=== PATIENT | male | born 1980 | race Caucasian/White ===

== ENCOUNTER 2017-02-05 05:41 | Inpatient (IN) | payer BC, MEDICAID ==
--- NOTE | 2017-02-05 07:26 | C.PDOC ---
History Of Present Illness PATIENT WAS WAITING IN ED FOR 1 HOUR PRIOR TO MY EVALUATION. 37 yo male w/PMHx of alcohol abuse, hx of sz ds, come in accompanied by significant other for evaluation of dizziness, syncopal episode this AM. As per pt, " woke up this AM, got up, felt weak and fell down, syncopized". AT present time, pt admits, feeling dizzy. Strong alcohol odor noted. Pt admits, drinking last night. As per family, pt was seen by PMD 3 days ago and diagnosed with bronchitis. Pt admits, cold sx for past week associated with nasal congestion, productive cough with clear sputum. Pt received Rx for antibiotic " did not start yet". Otherwise, pt denies head injury, worse headache of life, visual changes, focal deficits, neck pain, CP, SOB, dyspnea, diaphoresis, palpitation, wheezing, abd. pain, V/D, hematemesis, melena, back pain, UTI sx, incontinence, denies deformity, weakness to B/L UEs and LEs. A hellen time of evaluation, pt is AAO#3, not in any apparent distress. Time Seen by Provider: 02/05/17 07:22 Chief Complaint (Nursing): Syncope History Per: Patient, Family Past Medical History Reviewed: Historical Data, Nursing Documentation, Vital Signs Vital Signs: Last Vital Signs Temp 97.9 F 02/09/17 13:00 Pulse 77 02/09/17 17:00 Resp 23 02/09/17 17:00 BP 95/68 L 02/09/17 16:59 Pulse Ox 95 02/09/17 18:14 - Medical History PMH: HTN, Pancreatitis Family History: States: Unknown Family Hx - Social History Hx Alcohol Use: Yes Hx Substance Use: No - Immunization History Hx Tetanus Toxoid Vaccination: No Hx Influenza Vaccination: No Hx Pneumococcal Vaccination: No Review Of Systems Except As Marked, All Systems Reviewed And Found Negative. Constitutional: Negative for: Fever, Chills Eyes: Negative for: Vision Change ENT: Negative for: Ear Discharge, Nose Discharge, Mouth Swelling, Throat Swelling Cardiovascular: Negative for: Chest Pain, Palpitations, Edema, Light Headedness Respiratory: Positive for: Cough, Sputum. Negative for: Shortness of Breath, Pleuritic Pain, Wheezing Gastrointestinal: Negative for: Nausea, Vomiting, Abdominal Pain Genitourinary: Negative for: Incontinence Musculoskeletal: Negative for: Neck Pain, Back Pain Skin: Negative for: Bruising Neurological: Positive for: Altered Mental Status, Dizziness. Negative for: Weakness, Numbness, Headache Physical Exam - Physical Exam Appears: Well, Non-toxic, No Acute Distress Skin: Normal Color, Warm, Dry, No Rash, No Ecchymosis Head: Atraumatic, Normacephalic Eye(s): bilateral: PERRL Nose: No Flaring, Discharge (B/L nasal congestion with scant clear rhinorrhea) Oral Mucosa: Moist, No Drooling, Other ((+) strong alcohol odor) Tongue: Normal Appearing Lips: Normal Appearing Throat: No Erythema, No Exudate, No Drooling Neck: Trachea Midline, No Midline Cervical Tenderness, No Paracervical Tenderness, No Step Off Deformity, Supple Cardiovascular: Rhythm Regular, No Murmur, No JVD Respiratory: No Decreased Breath Sounds, No Accessory Muscle Use, No Rhonchi, No Wheezing Gastrointestinal/Abdominal: Soft, No Tenderness, No Distention, No Guarding Back: No CVA Tenderness, No Vertebral Tenderness Extremity: Normal ROM (B/L UEs adn LEs), No Tenderness, No Deformity, No Swelling Neurological/Psych: Oriented x3, Normal Speech, Normal Cognition, Normal Motor, Normal Sensation, Normal Reflexes ED Course And Treatment - Laboratory Results Result Diagrams: 02/09/17 06:18 02/09/17 06:18 ECG: Interpreted By Me, Viewed By Me (AND ED ATTENDING) Interpretation Of ECG: SR@87/min,LAD, LAFB, T wave inversion in V2-V4, no acute ST-T changes,. NO old study available to compare. O2 Sat by Pulse Oximetry: 95 Pulse Ox Interpretation: Normal - Radiology CXR: Interpreted by Me, Viewed By Me CXR Interpretation: Yes: No Acute Disease Progress Note: On re-evaluation, pt remained stable. Pt was sleeping comfortable during the ED observation, not in any apparent distress. Afebrile, hemodynamicaly stable. Non-toxic. PulsEOx 95% RA. neck: Supple, (-) JVD, (-) carotid bruits. Lungs: CTA B/L, BS equal B/L. Abd: benign. Neuorlogicaly intact. Blood work review and appears similar to previous visits. cable worker helper evaluation was called for possible detox admission. After plastics factory worker evaluated pt, admission to Dr.Ozden fields arranged. Disposition - Disposition Disposition: HOSPITALIZED Disposition Time: 10:01 Condition: STABLE - Clinical Impression Clinical Impression: Alcohol dependence
[2017-02-05] MEDS ORDERED: Sodium Chloride 0.9% 1,000 ML IV ONE (07:37)
[2017-02-05] MEDS ORDERED: Sodium Chloride 0.9% 1,000 ML ONE (07:41)
[2017-02-05 08:09] LABS: BASO # 0.1 K/uL (0.0-0.2); BASO % 1.7 % (0.0-2.0); EOS # 0.1 K/uL (0.0-0.7); EOS % 3.5 % (0.0-4.0); HEMATOCRIT 41.1 % (35.0-51.0); LYMPH # 1.5 K/uL (1.0-4.3); LYMPH % 44.9 % (20.0-40.0); MEAN CORPUSCULAR HEMOGLOBIN 34.4 pg (27.0-31.0); MEAN CORPUSCULAR HGB CONC 34.3 g/dL (33.0-37.0); MEAN PLATELET VOLUME 9.3 fL (7.2-11.7); MONO # 0.4 K/uL (0.0-0.8); MONO % 13.3 % (0.0-10.0); NRBC % 0.5 % (0.0-2.0); RED CELL DISTRIBUTION WIDTH 16.2 % (11.5-14.5); WHITE BLOOD COUNT 3.3 K/uL (4.8-10.8)
[2017-02-05 08:21] LABS: MEAN CELL VOLUME 100.4 fL (80.0-94.0)
[2017-02-05 08:24] LABS: RBC URINE 21 /hpf (0-3); URINE BILIRUBIN NEGATIVE (NEGATIVE); URINE BLOOD 1+ (NEGATIVE); URINE CALCIUM OXALATE CRYSTALS FEW /hpf (<OCC); URINE COLOR Amber (YELLOW); URINE GLUCOSE (UA) NORMAL (Normal); URINE KETONE TRACE mg/dL (NEGATIVE); URINE LEUKOCYTE ESTERASE NEG Leu/uL (Negative); URINE PROTEIN 3+ mg/dL (NEGATIVE); WBC URINE 3 /hpf (0-5)
[2017-02-05 08:39] LABS: ALB/GLOB RATIO 1.3 (1.0-2.1); ALCOHOL SERUM 243 mg/dl (0-10); ALKALINE PHOSPHATASE 186 U/L (38-126); ALT/SGPT 110 U/L (21-72); AST/SGOT 327 U/L (17-59); BLOOD UREA NITROGEN 8 mg/dL (9-20); CALCIUM 8.5 mg/dl (8.6-10.4); CARBON DIOXIDE 24 mmol/L (22-30); CHLORIDE 106 mmol/L (98-107); GFR AFRICAN-AMERICAN > 60; GLUCOSE,RANDOM 135 mg/dL (75-110); POTASSIUM 3.7 mmol/L (3.6-5.2); SODIUM 144 mmol/L (132-148); TOTAL PROTEIN 7.5 g/dL (6.3-8.3)
[2017-02-05] MEDS: Multiple Vitamins Tab PO SCH (13:53)
[2017-02-05] MEDS: Pantoprazole 20 mg EC Tab PO SCH (13:54)
--- NOTE | 2017-02-05 14:43 | PCM.PSYCH ---
Initial Psychiatric Evaluation - Initial Psychiatric Evaluation Type of Admission: Voluntary Legal Status: Capacity Chief Complaint (in patient's own words): "I want to stop drinking" History of Present Illness and Precipitating Events: This is a 37 year old male who lives with his girlfriend in [place]. He is single with one 9 year old child. 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 Patient reports to alcohol use, average of 0.5 gallons of liquor daily for 1 year. He reports he has been drinking "since his 20s, got clean, and relapsed a year ago." He reports 1 detox treatment previously, denies attending rehab or AA. He denies any previous naltrexone management. He reports history of seizures and delirium tremens 2 years ago. He denies any other drug use. Patient hopes to attend outpatient program after detox. Past medical history: sinus infection, bronchitis, HTN Past psychiatric history: anger management (court mandated) Family psychiatric history: denies Family substance use: denies Current Medications: Active Medications Generic Name Dose Route Start Last Admin Trade Name Freq PRN Reason Stop Dose Admin Clonidine HCl 0.1 mg 02/05/17 12:35 02/05/17 13:52 Catapres PO 0.1 mg Q4H PRN Administration Symptoms of alcohol withdrawl Folic Acid 1 mg 02/05/17 12:45 02/05/17 13:53 Folic Acid PO 1 mg DAILY RA Administration Gabapentin 300 mg 02/05/17 18:00 Neurontin PO BID RA Hydroxyzine HCl 25 mg 02/05/17 12:36 02/05/17 13:52 Atarax PO 25 mg Q4H PRN Administration Anxiety Ibuprofen 400 mg 02/05/17 12:36 Motrin Tab PO Q6H PRN Pain, moderate (4-7) Lorazepam 1 mg 02/05/17 12:35 Ativan PO Q4H PRN symptoms of alcohol withdrawl Lorazepam 2 mg 02/05/17 12:45 02/05/17 13:51 Ativan PO 02/10/17 12:44 2 mg Q6H RA Administration Taper Multivitamins 1 tab 02/05/17 12:45 02/05/17 13:53 Hexavitamin PO 1 tab DAILY RA Administration Pantoprazole Sodium 20 mg 02/05/17 12:45 02/05/17 13:54 Protonix Ec Tab PO 20 mg DAILY RA Administration Pneumococcal Polyvalent Vaccine 0.5 ml 02/08/17 14:23 Pneumovax 23 Vaccine IM 02/08/17 14:24 .ONCE ONE Thiamine HCl 100 mg 02/05/17 12:45 02/05/17 13:49 Vitamin B1 Tab PO 100 mg DAILY RA Administration Trazodone HCl 50 mg 02/05/17 12:35 Desyrel PO HS PRN Insomnia Past Psychiatric History - Past Psychiatric History Pertinent Medical Hx (Current Medical&Sleep Prob, Allergies): Allergies Allergy/AdvReac Type Severity Reaction Status Date / Time No Known Allergies Allergy Verified 02/05/17 05:53 No Known Home Med 02/05/17 Review of Systems - Review of Systems All systems: reviewed and no additional remarkable complaints except - EENT Nose/Mouth/Throat: Sinus Pain, Sinus Pressure, Facial Pain - Cardiovascular Cardiovascular: absent: Chest Pain - Respiratory Respiratory: absent: Dyspnea - Gastrointestinal Gastrointestinal: Abdominal Pain, Nausea, Vomiting - Neurological Neurological: Headaches, Tremor. absent: Convulsions - Psychiatric Psychiatric: Anxiety, Depression, Hopelessness, Irritability. absent: Auditory Hallucinations, Homicidal Ideation, Suicidal Ideation, Visual Hallucinations Mental Status Examination - Personal Presentation Personal Presentation: Looks stated age - Affect Affect: Constricted, Depressed - Motor Activity Motor Activity: Calm - Reliability in Providing Information Reliability in Providing Information: Poor, due to altered mood - Speech Speech: Organized - Mood Mood: Depressed, Anxious - Formal Thought Process Formal Thought Process: No Impairment - Obsessions/Compulsions Obsessions: No Compulsions: No - Cognitive Functions Orientation: Person, Place, Situation, Time Sensorium: Alert Attention/Concentration: Attentive Abstract Thinking: [place] Estimate of Intelligence: Average Judgement: Intact, as evidence by: Insight regarding need for hospitalization Memory: Recent intact, as evidence by: Ability to recall events of the day, Remote intact, as evidenced by: Abilit to recall sig. life events - Risk Risk: Diminished functioning DSM 5 DX - DSM 5 DSM 5 Diagnosis: Alcohol use disorder, severe Alcohol withdrawal - Recommended/Plan of Treatment Treatment Recommendations and Plan of Treatment: Ativan detox Gabapentin for augmentation As needed medications Attend groups and activities Supportive therapy and psychoeducation CT for abstinence CBT for relapse prevention Encourage MAT Refer to rehab or IOP, and self-help groups. Projected ELOS: 4-5 days Prognosis: Good with treatment Discharge Plan and Discharge Criteria: No withdrawal symptoms Refer to rehab
--- NOTE | 2017-02-05 14:47 | PCM.BM ---
Treatment Plan Problems - Problems identified on initial assessmt possible withdrawal from alcohol Date Initiated: 02/05/17 Time Initiated: 14:45 Assessment reference: NA Status: Active anxiety Date Initiated: 02/05/17 Time Initiated: 14:46 Assessment reference: NA Status: Active - Milieu Protocol Maintain good personal hygiene: daily Encourage regular showers, daily Remind patient to perform daily oral care, daily Assist patient to perform ADL's Conduct patient checks and document Observation sheet: Q15 minutes Maintain personal safety: every shift Educate patient to report safety concerns to staff, every shift Monitor environment for contraband/sharps Medication safety: Monitor for expected outcome, potential side effects: every shift, Assess barriers to learning: every shift, Assess readiness for medication education: every shift
--- NOTE | 2017-02-05 19:13 | CARD ---
APPROVED REPORT EKG Measurement Heart [id number] ID [id number] <Conclusion> Normal sinus rhythm Left anterior fascicular block Nonspecific ST and T wave abnormality Abnormal ECG
--- NOTE | 2017-02-05 21:15 | CP.PCM.CON ---
<Daina Collier - Last Filed: 02/06/17 01:47> History of Present Illness - History of Present Illness History of Present Illness: Medicine Consult Note HPI: Patient is a 37M with PMH alcoholism and untreated HTN who is here for alcohol detox. Medicine was consulted for uncontrolled HTN. Patient says he sees a doctor outside the hospital but cannot remember his name. He says he saw him yesterday and the doctor prescribed "65 mg of some blood pressure medication " that he cannot remember the name of. Patient says he filled the medication at a pharmacy he cannot recall but did not take it yet because he came here. Patient admits to tremors, occipital headache and ringing in the left ear of 3 days duration. He also admits to cough productive of green sputum, occasional dyspnea, and sore throat for 1 year. Patient says he noticed an pruritic rash on his left foot near the ankle that started yesterday. Of note, patient says that 1 month ago he noticed dark tarry stool and then 2 weeks ago he had a BM with blood in the toilet bowl but did not notice any on the toilet paper when he wiped. Patient has not noticed blood in his stool since then. He denies fever , chills, dizziness, chest pain, palpitations, abdominal pain, n/v/d/c, dysuria , hematuria, calf pain, and LE swelling. 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 Review of Systems - Review of Systems All systems: reviewed and no additional remarkable complaints except (as per HPI ) Past Patient History - Past Medical History & Family History Past Medical History?: Yes - Past Social History Smoking Status: Heavy Smoker > 10 Cigarettes Daily - CARDIAC Hx Cardiac Disorders: No Hx Hypertension: Yes - PULMONARY Hx Tuberculosis: No - NEUROLOGICAL HX Cerebrovascular Accident: No Hx Seizures: Yes (last March 2015) - HEMATOLOGICAL/ONCOLOGICAL Hx Cancer: No Hx Human Immunodeficiency Virus (HIV): No - MUSCULOSKELETAL/RHEUMATOLOGICAL Hx Falls: Yes - GASTROINTESTINAL Hx Pancreatitis: Yes - GENITOURINARY/GYNECOLOGICAL Hx Sexually Transmitted Disorders: No - PSYCHIATRIC Hx Substance Use: No - SURGICAL HISTORY Hx Surgeries: No - ANESTHESIA Hx Anesthesia: No Meds Allergies/Adverse Reactions: Allergies Allergy/AdvReac Type Severity Reaction Status Date / Time No Known Allergies Allergy Verified 02/05/17 05:53 - Medications Medications: Current Medications Clonidine HCl (Catapres) 0.1 mg PO Q4H PRN PRN Reason: Symptoms of alcohol withdrawl Last Admin: 02/05/17 13:52 Dose: 0.1 mg Folic Acid (Folic Acid) 1 mg PO DAILY [facility] Last Admin: 02/05/17 13:53 Dose: 1 mg Gabapentin (Neurontin) 300 mg PO BID [facility] Last Admin: 02/05/17 17:39 Dose: 300 mg Hydralazine HCl (Apresoline) 10 mg PO QID [facility] Last Admin: 02/05/17 17:39 Dose: 10 mg Hydroxyzine HCl (Atarax) 25 mg PO Q4H PRN PRN Reason: Anxiety Last Admin: 02/05/17 13:52 Dose: 25 mg Ibuprofen (Motrin Tab) 400 mg PO Q6H PRN PRN Reason: Pain, moderate (4-7) Lorazepam (Ativan) 1 mg PO Q4H PRN PRN Reason: symptoms of alcohol withdrawl Lorazepam (Ativan) 2 mg PO Q6H [facility] PRN Reason: Taper Stop: 02/10/17 12:44 Last Admin: 02/05/17 18:07 Dose: Not Given Metoprolol Tartrate (Lopressor) 25 mg PO ONCE [facility] Last Admin: 02/05/17 19:00 Dose: 25 mg Metoprolol Tartrate (Lopressor) 25 mg PO DAILY [facility] Multivitamins (Hexavitamin) 1 tab PO DAILY [facility] Last Admin: 02/05/17 13:53 Dose: 1 tab Pantoprazole Sodium (Protonix Ec Tab) 20 mg PO DAILY [facility] Last Admin: 02/05/17 13:54 Dose: 20 mg Pneumococcal Polyvalent Vaccine (Pneumovax 23 Vaccine) 0.5 ml IM .ONCE ONE Stop: 02/08/17 14:24 Thiamine HCl (Vitamin B1 Tab) 100 mg PO DAILY [facility] Last Admin: 02/05/17 13:49 Dose: 100 mg Trazodone HCl (Desyrel) 50 mg PO HS PRN PRN Reason: Insomnia Physical Exam - Constitutional Appears: Non-toxic, No Acute Distress Additional comments: smells of cigarette smoke and appears fatigued - Head Exam Head Exam: ATRAUMATIC, NORMOCEPHALIC - Eye Exam Eye Exam: EOMI, Normal appearance, PERRL - ENT Exam ENT Exam: Mucous Membranes Moist - Neck Exam Neck exam: Positive for: Normal Inspection - Respiratory Exam Respiratory Exam: Clear to Auscultation Bilateral, NORMAL BREATHING PATTERN. absent: Accessory Muscle Use, Rales, Rhonchi, Wheezes, Respiratory Distress - Cardiovascular Exam Cardiovascular Exam: Tachycardia, REGULAR RHYTHM, +S1, +S2 - GI/Abdominal Exam GI & Abdominal Exam: Hyperactive Bowel Sounds, Soft. absent: Distended, Tenderness - Extremities Exam Extremities exam: Positive for: normal inspection. Negative for: calf tenderness, pedal edema - Neurological Exam Neurological exam: Alert, Oriented x3 Additional comments: tremor in hands b/l - Psychiatric Exam Psychiatric exam: Normal Affect, Normal Mood - Skin Skin Exam: Dry, Intact, Normal Color, Warm Results - Vital Signs Recent Vital Signs: Last Vital Signs Temp 99 F 02/05/17 20:52 Pulse 93 H 02/05/17 20:52 Resp 18 02/05/17 20:52 BP 162/121 H 02/05/17 20:52 Pulse Ox 97 02/05/17 20:52 - Labs Result Diagrams: 02/05/17 07:55 02/05/17 07:55 Labs: Laboratory Results - last 24 hr 02/05/17 02/05/17 02/05/17 07:55 07:55 07:55 WBC 3.3 L RBC 4.10 L Hgb 14.1 Hct 41.1 MCV 100.4 H D MCH 34.4 H MCHC 34.3 RDW 16.2 H Plt Count 118 L MPV 9.3 Neut % (Auto) 36.6 L Lymph % (Auto) 44.9 H [place] % (Auto) 13.3 H Eos % (Auto) 3.5 Baso % (Auto) 1.7 Neut # 1.2 L Lymph # 1.5 [place] # 0.4 Eos # 0.1 Baso # 0.1 Differential Comment Sodium 144 Potassium 3.7 Chloride 106 Carbon Dioxide 24 Anion Gap 17 BUN 8 L Creatinine 0.6 L Est GFR ( Amer) > 60 Est GFR (Non-Af Amer) > 60 Random Glucose 135 H Calcium 8.5 L Total Bilirubin 1.0 AST 327 H ALT 110 H Alkaline Phosphatase 186 H Total Creatine Kinase 107 Troponin I 0.0150 Total Protein 7.5 Albumin 4.3 Globulin 3.2 Albumin/Globulin Ratio 1.3 Urine Color Mica Urine Clarity Clear Urine pH 5.0 Ur Specific [place] 1.027 Urine Protein 3+ H Urine Glucose (UA) Normal Urine Ketones Trace Urine Blood 1+ H Urine Nitrate Negative Urine Bilirubin Negative Urine Urobilinogen 2.0 Ur Leukocyte Esterase Neg Urine WBC (Auto) 3 Urine RBC (Auto) 21 H Ur Squamous Epith Cells 2 Calcium Oxalate Crystal Few H Urine Opiates Screen Urine Methadone Screen Ur Barbiturates Screen Ur Phencyclidine Scrn Ur Amphetamines Screen U Benzodiazepines Scrn U Oth Cocaine Metabols U Cannabinoids Screen Alcohol, Quantitative 243 H 02/05/17 07:55 WBC RBC Hgb Hct MCV MCH MCHC RDW Plt Count MPV Neut % (Auto) Lymph % (Auto) [place] % (Auto) Eos % (Auto) Baso % (Auto) Neut # Lymph # [place] # Eos # Baso # Differential Comment Sodium Potassium Chloride Carbon Dioxide Anion Gap BUN Creatinine Est GFR ( Amer) Est GFR (Non-Af Amer) Random Glucose Calcium Total Bilirubin AST ALT Alkaline Phosphatase Total Creatine Kinase Troponin I Total Protein Albumin Globulin Albumin/Globulin Ratio Urine Color Urine Clarity Urine pH Ur Specific [place] Urine Protein Urine Glucose (UA) Urine Ketones Urine Blood Urine Nitrate Urine Bilirubin Urine Urobilinogen Ur Leukocyte Esterase Urine WBC (Auto) Urine RBC (Auto) Ur Squamous Epith Cells Calcium Oxalate Crystal Urine Opiates Screen Negative Urine Methadone Screen Negative Ur Barbiturates Screen Negative Ur Phencyclidine Scrn Negative Ur Amphetamines Screen Negative U Benzodiazepines Scrn Negative U Oth Cocaine Metabols Negative U Cannabinoids Screen Negative Alcohol, Quantitative Assessment & Plan - Assessment and Plan (Free Text) Plan: HTN * Monitor on telemetry * Discontinued hydralazine 10 mg PO QID & Clonadine 0.1 mg PO Q4 PRN * Added Propanolol 20 mg QID * EKG: NSR, left anterior fasicular block, nonspecific ST and T wave abnormality * CXR: NAD * Will admits to telemetry and continue to monitor Alcoholism * Alcohol level: 243 * UDS: negative * Ativan 2 mg PO QID and 1 mg IV Q2H PRN * Continue current management per primary (Dr. Oconnor) Transaminitis * pattern consistent with chronic alcoholism * Hep panel * Hepatic US Recent episode of melena and hematochezia * H&H stable * Discontinued ibuprofen * f/u FOBT Mechanical sleep apnea * ENT consulted (Kiarra) - recs appreciated * CPAP at night <Joey Gómez P - Last Filed: 02/06/17 03:13> Meds - Medications Medications: Current Medications Folic Acid (Folic Acid) 1 mg PO DAILY [facility] Last Admin: 02/05/17 13:53 Dose: 1 mg Gabapentin (Neurontin) 300 mg PO BID [facility] Last Admin: 02/05/17 17:39 Dose: 300 mg Magnesium Sulfate/Dextrose (Magnesium Sulfate 1 Gm/100 Ml D5w) 1 gm in 100 mls @ 300 mls/hr IVPB Q30M NADIA Stop: 02/06/17 03:49 Magnesium Sulfate/Dextrose (Magnesium Sulfate 1 Gm/100 Ml D5w) 1 gm in 100 mls @ 200 mls/hr IVPB ONCE ONE Stop: 02/06/17 03:29 Lorazepam (Ativan) 2 mg PO Q6H NADIA PRN Reason: Taper Stop: 02/10/17 12:44 Last Admin: 02/06/17 01:45 Dose: 2 mg Lorazepam (Ativan) 1 mg PO Q2H PRN PRN Reason: symptoms of alcohol withdrawl Metoprolol Tartrate (Lopressor) 25 mg PO ONCE [facility] Last Admin: 02/05/17 19:00 Dose: 25 mg Multivitamins (Hexavitamin) 1 tab PO DAILY [facility] Last Admin: 02/05/17 13:53 Dose: 1 tab Pantoprazole Sodium (Protonix Ec Tab) 20 mg PO DAILY [facility] Last Admin: 02/05/17 13:54 Dose: 20 mg Pneumococcal Polyvalent Vaccine (Pneumovax 23 Vaccine) 0.5 ml IM .ONCE ONE Stop: 02/08/17 14:24 Propranolol HCl (Inderal) 20 mg PO QID [facility] Thiamine HCl (Vitamin B1 Tab) 100 mg PO DAILY [facility] Last Admin: 02/05/17 13:49 Dose: 100 mg Trazodone HCl (Desyrel) 50 mg PO HS PRN PRN Reason: Insomnia Results - Vital Signs Recent Vital Signs: Last Vital Signs Temp 99.2 F 12/12/17 01:15 Pulse 83 02/06/17 01:15 Resp 18 02/06/17 00:31 BP 180/136 H 02/06/17 00:31 Pulse Ox 97 02/06/17 00:31 - Labs Result Diagrams: 02/06/17 01:53 02/06/17 01:53 Labs: Laboratory Results - last 24 hr 02/05/17 02/05/17 02/05/17 07:55 07:55 07:55 WBC 3.3 L RBC 4.10 L Hgb 14.1 Hct 41.1 MCV 100.4 H D MCH 34.4 H MCHC 34.3 RDW 16.2 H Plt Count 118 L MPV 9.3 Neut % (Auto) 36.6 L Lymph % (Auto) 44.9 H [place] % (Auto) 13.3 H Eos % (Auto) 3.5 Baso % (Auto) 1.7 Neut # 1.2 L Lymph # 1.5 [place] # 0.4 Eos # 0.1 Baso # 0.1 Differential Comment Sodium 144 Potassium 3.7 Chloride 106 Carbon Dioxide 24 Anion Gap 17 BUN 8 L Creatinine 0.6 L Est GFR ( Amer) > 60 Est GFR (Non-Af Amer) > 60 Random Glucose 135 H Calcium 8.5 L Phosphorus Magnesium Total Bilirubin 1.0 AST 327 H ALT 110 H Alkaline Phosphatase 186 H Total Creatine Kinase 107 Troponin I 0.0150 Total Protein 7.5 Albumin 4.3 Globulin 3.2 Albumin/Globulin Ratio 1.3 25-OH Vitamin D Total Urine Color Mica Urine Clarity Clear Urine pH 5.0 Ur Specific [place] 1.027 Urine Protein 3+ H Urine Glucose (UA) Normal Urine Ketones Trace Urine Blood 1+ H Urine Nitrate Negative Urine Bilirubin Negative Urine Urobilinogen 2.0 Ur Leukocyte Esterase Neg Urine WBC (Auto) 3 Urine RBC (Auto) 21 H Ur Squamous Epith Cells 2 Calcium Oxalate Crystal Few H Urine Opiates Screen Urine Methadone Screen Ur Barbiturates Screen Ur Phencyclidine Scrn Ur Amphetamines Screen U Benzodiazepines Scrn U Oth Cocaine Metabols U Cannabinoids Screen Alcohol, Quantitative 243 H Hepatitis A IgM Ab Hep Bs Antigen Hep B Core IgM Ab 02/05/17 02/06/17 02/06/17 07:55 01:53 01:53 WBC RBC Hgb Hct MCV MCH MCHC RDW Plt Count MPV Neut % (Auto) Lymph % (Auto) [place] % (Auto) Eos % (Auto) Baso % (Auto) Neut # Lymph # [place] # Eos # Baso # Differential Comment Sodium 140 Potassium 3.6 Chloride 102 Carbon Dioxide 29 Anion Gap 13 BUN 9 Creatinine 0.6 L Est GFR ( Amer) > 60 Est GFR (Non-Af Amer) > 60 Random Glucose 113 H Calcium 8.6 Phosphorus 3.0 Magnesium 1.1 L Total Bilirubin 1.4 H AST 264 H ALT 107 H Alkaline Phosphatase 145 H D Total Creatine Kinase Troponin I Total Protein 8.2 Albumin 4.2 Globulin 4.0 H Albumin/Globulin Ratio 1.0 25-OH Vitamin D Total Urine Color Urine Clarity Urine pH Ur Specific [place] Urine Protein Urine Glucose (UA) Urine Ketones Urine Blood Urine Nitrate Urine Bilirubin Urine Urobilinogen Ur Leukocyte Esterase Urine WBC (Auto) Urine RBC (Auto) Ur Squamous Epith Cells Calcium Oxalate Crystal Urine Opiates Screen Negative Urine Methadone Screen Negative Ur Barbiturates Screen Negative Ur Phencyclidine Scrn Negative Ur Amphetamines Screen Negative U Benzodiazepines Scrn Negative U Oth Cocaine Metabols Negative U Cannabinoids Screen Negative Alcohol, Quantitative Hepatitis A IgM Ab Negative Hep Bs Antigen Negative Hep B Core IgM Ab Negative 02/06/17 02/06/17 01:53 01:53 WBC 4.1 L RBC 4.09 L Hgb 13.8 Hct 41.1 MCV 100.5 H MCH 33.7 H MCHC 33.6 RDW 16.0 H Plt Count 104 L MPV 9.5 Neut % (Auto) 47.3 L Lymph % (Auto) 38.2 [place] % (Auto) 9.9 Eos % (Auto) 3.2 Baso % (Auto) 1.4 Neut # 1.9 Lymph # 1.6 [place] # 0.4 Eos # 0.1 Baso # 0.1 Differential Comment Sodium Potassium Chloride Carbon Dioxide Anion Gap BUN Creatinine Est GFR ( Amer) Est GFR (Non-Af Amer) Random Glucose Calcium Phosphorus Magnesium Total Bilirubin AST ALT Alkaline Phosphatase Total Creatine Kinase Troponin I Total Protein Albumin Globulin Albumin/Globulin Ratio 25-OH Vitamin D Total 14.7 L Urine Color Urine Clarity Urine pH Ur Specific [place] Urine Protein Urine Glucose (UA) Urine Ketones Urine Blood Urine Nitrate Urine Bilirubin Urine Urobilinogen Ur Leukocyte Esterase Urine WBC (Auto) Urine RBC (Auto) Ur Squamous Epith Cells Calcium Oxalate Crystal Urine Opiates Screen Urine Methadone Screen Ur Barbiturates Screen Ur Phencyclidine Scrn Ur Amphetamines Screen U Benzodiazepines Scrn U Oth Cocaine Metabols U Cannabinoids Screen Alcohol, Quantitative Hepatitis A IgM Ab Hep Bs Antigen Hep B Core IgM Ab Attending/Attestation - Attestation I have personally seen and examined this patient.: Yes I have fully participated in the care of the patient.: Yes I have reviewed all pertinent clinical information: Yes Notes (Text): Patient seen in detox, where he was admitted for alcohol detox, patient drinks about 1/2 gallon of vodka a day, patient had tremors, htn noticed in the detox more on automatic then manual due to visible tremors about 30mmhg difference in diastolic bp. Also noticed inspiratory and expiratory sound from the pharynx, naso pharynx suggesting mechanical sleep apnea. There was also concern relating patient having melanotic stool. Transaminits appearing like alcoholic liver disease. Thrombocytopenia, suggesting possibility increased size of spleen secondary to liver cirhosis. Plan Patient transferred to [facility] for anticipated DT due to large volume alcohol consumption Oral ativan nadia, iv prn Thiamine, mvt, fa Hepatitis w/u, hepatic imaging with usg Replacement of electrolytes CPAP ENT eval for sleep apnea. GI DVT prophylaxis
[2017-02-06 02:01] LABS: BASO # 0.1 K/uL (0.0-0.2); BASO % 1.4 % (0.0-2.0); EOS # 0.1 K/uL (0.0-0.7); EOS % 3.2 % (0.0-4.0); HEMATOCRIT 41.1 % (35.0-51.0); LYMPH # 1.6 K/uL (1.0-4.3); LYMPH % 38.2 % (20.0-40.0); MEAN CELL VOLUME 100.5 fL (80.0-94.0); MEAN CORPUSCULAR HEMOGLOBIN 33.7 pg (27.0-31.0); MEAN CORPUSCULAR HGB CONC 33.6 g/dL (33.0-37.0); MEAN PLATELET VOLUME 9.5 fL (7.2-11.7); MONO # 0.4 K/uL (0.0-0.8); MONO % 9.9 % (0.0-10.0); WHITE BLOOD COUNT 4.1 K/uL (4.8-10.8)
[2017-02-06 02:25] LABS: ALKALINE PHOSPHATASE 145 U/L (38-126); ALT/SGPT 107 U/L (21-72); AST/SGOT 264 U/L (17-59); BILIRUBIN,TOTAL 1.4 mg/dL (0.2-1.3); BLOOD UREA NITROGEN 9 mg/dL (9-20); CALCIUM 8.6 mg/dl (8.6-10.4); CARBON DIOXIDE 29 mmol/L (22-30); CHLORIDE 102 mmol/L (98-107); GFR AFRICAN-AMERICAN > 60; GLUCOSE,RANDOM 113 mg/dL (75-110); MAGNESIUM 1.1 mg/dL (1.6-2.3); POTASSIUM 3.6 mmol/L (3.6-5.2); SODIUM 140 mmol/L (132-148); TOTAL PROTEIN 8.2 g/dL (6.3-8.3)
[2017-02-06] MEDS ORDERED: Magnesium Sulfate 1 gm in D5W 1 GM/100 ML BAG IVPB SCH (03:00)
[2017-02-06] MEDS: Magnesium Sulfate 1 gm in D5W 1 GM/100 ML BAG IVPB SCH ×3 (03:10→05:15)
[2017-02-06 08:07] VITALS: BMI 31.6
--- NOTE | 2017-02-06 09:42 | CP.PCM.PN ---
<Reyna Giraldo - Last Filed: 02/06/17 13:47> Subjective - Date & Time of Evaluation Date of Evaluation: 02/06/17 Time of Evaluation: 09:35 - Subjective Subjective: Progress note for Dr. Molina Patient seen and examined at bedside. Patient states he feels cold and tired, but no other complaints. Patient continues to fall sleep during the Patient denies fever, abdominal pain. Objective - Vital Signs/Intake and Output Vital Signs (last 24 hours): Temp Pulse Resp BP Pulse Ox 98 F 70 19 167/109 H 96 02/06/17 08:00 02/06/17 08:01 02/06/17 08:01 02/06/17 08:01 02/06/17 08:01 Intake and Output: 02/06/17 02/06/17 06:59 18:59 Intake Total 500 Output Total 300 Balance 200 - Medications Medications: Current Medications Folic Acid (Folic Acid) 1 mg PO DAILY [facility] Last Admin: 02/05/17 13:53 Dose: 1 mg Gabapentin (Neurontin) 300 mg PO BID [facility] Last Admin: 02/05/17 17:39 Dose: 300 mg Heparin Sodium (Porcine) (Heparin) 5,000 units SC Q12 [facility] Piperacillin Sod/Tazobactam (Sod 3.375 gm/ Sodium Chloride) 100 mls @ 100 mls/ hr IVPB Q6H RA Lorazepam (Ativan) 2 mg PO Q6H [facility] PRN Reason: Taper Stop: 02/10/17 12:44 Last Admin: 02/06/17 07:00 Dose: 2 mg Lorazepam (Ativan) 1 mg PO Q2H PRN PRN Reason: symptoms of alcohol withdrawl Metoprolol Tartrate (Lopressor) 25 mg PO ONCE [facility] Last Admin: 02/05/17 19:00 Dose: 25 mg Multivitamins (Hexavitamin) 1 tab PO DAILY [facility] Last Admin: 02/05/17 13:53 Dose: 1 tab Pantoprazole Sodium (Protonix Ec Tab) 20 mg PO DAILY [facility] Last Admin: 02/05/17 13:54 Dose: 20 mg Pneumococcal Polyvalent Vaccine (Pneumovax 23 Vaccine) 0.5 ml IM .ONCE ONE Stop: 02/08/17 14:24 Propranolol HCl (Inderal) 20 mg PO QID [facility] Thiamine HCl (Vitamin B1 Tab) 100 mg PO DAILY [facility] Last Admin: 02/05/17 13:49 Dose: 100 mg Trazodone HCl (Desyrel) 50 mg PO HS PRN PRN Reason: Insomnia - Labs Labs: 02/06/17 01:53 02/06/17 01:53 - Constitutional Appears: Non-toxic, No Acute Distress - Head Exam Head Exam: NORMAL INSPECTION - Eye Exam Eye Exam: EOMI, Normal appearance - ENT Exam ENT Exam: Mucous Membranes Moist - Neck Exam Neck Exam: Full ROM. absent: Tenderness - Respiratory Exam Respiratory Exam: Clear to Ausculation Bilateral, NORMAL BREATHING PATTERN. absent: Decreased Breath Sounds, Wheezes, Respiratory Distress - Cardiovascular Exam Cardiovascular Exam: REGULAR RHYTHM, +S1, +S2. absent: Bradycardia, Tachycardia - GI/Abdominal Exam GI & Abdominal Exam: Soft, Normal Bowel Sounds. absent: Distended, Tenderness - Extremities Exam Extremities Exam: Full ROM. absent: Pedal Edema - Back Exam Back Exam: Full ROM - Neurological Exam Neurological Exam: Alert, Awake - Psychiatric Exam Psychiatric exam: Normal Affect, Normal Mood - Skin Skin Exam: Dry, Intact, Warm Assessment and Plan - Assessment and Plan (Free Text) Assessment: HTN * Monitor on telemetry * Discontinued hydralazine 10 mg PO QID & Clonadine 0.1 mg PO Q4 PRN * Added Propanolol 20 mg QID * 02/05 EKbpm NSR left anterior fascicular block,nonspecific ST and T wave abnormality * 02/05 CXR: no active pulmonary disease * 02/05 admitted to telemetry and continue to monitor * 02/06 changed to regular bed Alcohol use * Alcohol level: 243 * UDS: negative * Ativan 2 mg PO Q4H RA and 1 mg IV Q2H PRN * Librium 50 one dose ordered 02/06 * Continue current management per primary (Dr. Oconnor) * encouraged alcohol cessation * re-evaluate tomorrow to change medications if necessary Transaminitis * pattern consistent with chronic alcoholism * 02/05 Hep panel: negative * 02/06 abdominal US: echogenic liver possible parechymal disease or fatty infiltration, no focal hepatic mass identified. main portal vein patent with normal directional flow. no intrahepatic bile duct dilatation. no gallstones, no gallbladder wall thickening or pericholecystic edema. negative sonographic Harper's sign. CBD 3mm. Recent episode of melena and hematochezia * H&H stable * Discontinued ibuprofen * f/u FOBT Mechanical sleep apnea * 02/05 ENT consult: Dr. Plunkett * CPAP at night * 02/[address]: findings are most compatible with chronic left maxillary sinusitis/sinonasal polyp Discussed with Dr. Tracy Giraldo DO PGY1 <Luis Molina H - Last Filed: 02/06/17 14:07> Objective - Vital Signs/Intake and Output Vital Signs (last 24 hours): Temp Pulse Resp BP Pulse Ox 98 F 70 19 167/109 H 96 02/06/17 08:00 02/06/17 08:01 02/06/17 08:01 02/06/17 08:01 02/06/17 08:01 Intake and Output: 02/06/17 02/06/17 06:59 18:59 Intake Total 500 Output Total 300 Balance 200 - Medications Medications: Current Medications Ergocalciferol (Drisdol 50,000 Intl Units Cap) 1 cap PO Q7D [facility] Last Admin: 02/06/17 13:23 Dose: 1 cap Folic Acid (Folic Acid) 1 mg PO DAILY [facility] Last Admin: 02/06/17 10:00 Dose: 1 mg Gabapentin (Neurontin) 300 mg PO BID [facility] Last Admin: 02/05/17 17:39 Dose: 300 mg Heparin Sodium (Porcine) (Heparin) 5,000 units SC Q12 [facility] Last Admin: 02/06/17 10:10 Dose: 5,000 units Piperacillin Sod/Tazobactam (Sod 3.375 gm/ Sodium Chloride) 100 mls @ 100 mls/ hr IVPB Q6H [facility] Last Admin: 02/06/17 10:01 Dose: 100 mls/hr Lorazepam (Ativan) 1 mg PO Q2H PRN PRN Reason: symptoms of alcohol withdrawl Lorazepam (Ativan) 2 mg IVP Q4H [facility] Last Admin: 02/06/17 12:48 Dose: 2 mg Metoprolol Tartrate (Lopressor) 25 mg PO ONCE [facility] Last Admin: 02/05/17 19:00 Dose: 25 mg Multivitamins (Hexavitamin) 1 tab PO DAILY [facility] Last Admin: 02/06/17 10:00 Dose: 1 tab Pantoprazole Sodium (Protonix Ec Tab) 20 mg PO DAILY [facility] Last Admin: 02/06/17 10:14 Dose: 20 mg Pneumococcal Polyvalent Vaccine (Pneumovax 23 Vaccine) 0.5 ml IM .ONCE ONE Stop: 02/08/17 14:24 Thiamine HCl (Vitamin B1 Tab) 100 mg PO DAILY [facility] Last Admin: 02/06/17 10:00 Dose: 100 mg Trazodone HCl (Desyrel) 50 mg PO HS PRN PRN Reason: Insomnia - Labs Labs: 02/06/17 01:53 02/06/17 01:53 Attending/Attestation - Attestation I have personally seen and examined this patient.: Yes I have fully participated in the care of the patient.: Yes I have reviewed all pertinent clinical information, including history, physical exam and plan: Yes Notes (Text): 02/06/17 14:07 Medical attending: Patient was seen and examined by me, agree with the above note by medical office supervisor. Patient was awake, alert. He is having visible shaking and tremors. He was able to communicate with us in say that he does drink very heavily for quite some time now. His previous medication was Ativan by mouth every 6 hours however considering how he looks on physical exam I don't feel comfortable with this in order to change him over to Ativan 2 mg IV every 4 hours on a scheduled basis. And burning, and reevaluate him again and see if it decreases. Also will give one- time dose of Librium however I don't think to be on standing dose of Librium since he does have relatively elevated liver function test. He also appeared to be on 2 beta blockers, working stop one of them for the time being and continue monitoring blood pressure Thank you very much, Luis Molina
[2017-02-06] MEDS: Multiple Vitamins Tab PO SCH (10:00)
[2017-02-06] MEDS ORDERED: Ergocalciferol 50,000 Intl Units Cap PO SCH (10:00)
[2017-02-06] MEDS: Piperacillin/Tazobact 3.375 GM in Sodium Chloride 0.9% 100 ML IVPB SCH ×3 (10:01→21:24)
[2017-02-06] MEDS: Pantoprazole 20 mg EC Tab PO SCH (10:14)
--- NOTE | 2017-02-06 10:26 | US ---
HISTORY: transaminitis COMPARISON: None available. TECHNIQUE: Sonographic evaluation of the right upper quadrant of the abdomen. FINDINGS: LIVER: Measures 24.7 cm in length. Echogenic liver may be seen in setting of hepatic parenchymal disease or fatty infiltration. No focal hepatic mass identified. Main portal vein appears patent with normal directional flow. No intrahepatic bile duct dilatation. GALLBLADDER: No gallstones. No gallbladder wall thickening or pericholecystic edema. Negative sonographic Harper's sign as assessed by the employee welfare manager. COMMON BILE DUCT: Measures 3 mm. PANCREAS: Not well-visualized. RIGHT KIDNEY: Measures approximately 13.3 x 5.4 x 5.2 cm. No obstructing calculus or hydronephrosis identified. AORTA: Not well-visualized. IVC: Not well-visualized. OTHER FINDINGS: None . IMPRESSION: Hepatomegaly. Echogenic liver may be seen in setting of hepatic parenchymal disease or fatty infiltration.
--- NOTE | 2017-02-06 11:55 | CT ---
PROCEDURE: CT SINUSES WITHOUT CONTRAST HISTORY: Sinusitis COMPARISON: None TECHNIQUE: Contiguous axial CT images of the paranasal sinuses were obtained. Coronal and sagittal reformats were generated. Radiation dose: Total exam DLP = 662.89 mGy-cm. This CT exam was performed using one or more of the following dose reduction techniques: Automated exposure control, adjustment of the mA and/or kV according to patient size, and/or use of iterative reconstruction technique. FINDINGS: FRONTAL SINUSES: The right frontal sinus is well developed. There is no mucosal thickening or fluid. The left frontal sinus is hypoplastic and there is moderate circumferential mucosal thickening. ETHMOID SINUSES: The ethmoid air cells are well developed. The right ethmoid air cells are clear. There is moderate mucosal thickening in the left anterior ethmoid air cells. SPHENOID SINUSES: The sphenoid sinus is well developed without mucosal thickening or fluid. MAXILLARY SINUSES: The maxillary sinuses are well developed. There is complete soft tissue opacification of the left maxillary sinus with widening of the ostiomeatal unit and polypoid soft tissue extension into the nasal cavity. SINUS DRAINAGE: The right ostiomeatal unit is patent. There is obstruction of the left ostiomeatal unit. There is obstruction of the left frontoethmoid recess. Sphenoid ethmoid recesses are patent. NASAL SEPTUM: S shaped nasal septum with a left bony septal spur. MASS: None. SKULL BASE: Unremarkable. TEMPORAL BONES: Middle ears and mastoid grossly unremarkable. OTHER FINDINGS: There is mild adenoid hypertrophy. IMPRESSION: Findings are most compatible with chronic left maxillary sinusitis/ sinonasal polyp. Additional findings as described above.
--- NOTE | 2017-02-06 13:09 | PCM.PYCHPN ---
Psychiatric Progress Note - Psychiatric Progress Note Patient seen today, length of contact: 17 min Patient Chief Complaint: "I am tired" Problems Identified/Issues Discussed: The pt is seen, chart reviewed, case discussed with staff. He is transferred to telemetry (but in ICU) due to very elevated BP Support given, CBT and LA used briefly No new symptoms reported, improving slowly and needs more time No SEs from medications, risks discussed. He is slightly confused and still has wdw sx and high BP, but better than yesterday Wants to go to a rehab after this. We will transfer him back to detox when medically stable Medication Change: Yes (detox changes daily) Medical Record Reviewed: Yes Mental Status Examination - Cognitive Function Orientation: Person, Place, Situation, Time Memory: Impaired Attention: Poor Concentration: Poor Association: WNL Fund of Knowledge: WNL - Mood Mood: Depressed, Anxious - Affect Affect: Constricted, Depressed - Speech Speech: Appropriate - Formal Thought Process Formal Thought Process: No Impairment - Suicidal Ideation Suicidal Ideation: No - Homicidal Ideation Homicidal Ideation: No Goal/Treatment Plan - Goal/Treatment Plan Need for Continued Stay: Discharge may exacerbated symptoms, Severe functional impairment, Other Progress Toward Problem(s) and Goals/Treatment Plan: Ativan detox continues PLEASE GIVEN ADDITIONAL ATIVAN IF HE IS IN WITHDRAWAL, PER [facility] or CALL CORRESPONDENCE SCHOOL INSTRUCTOR Gabapentin for augmentation As needed medications Attend groups and activities Supportive therapy and psychoeducation LA for abstinence CBT for relapse prevention Encourage MAT Refer to rehab or IOP, and self-help groups. Medicine help appreciated re BP Transfer to detox when medically cleared. Call race and sports book writer or Dr. Coppola (Sunday) for that.
--- NOTE | 2017-02-06 19:32 | OP ---
PROCEDURE DATE: 02/06/2017 PREOPERATIVE DIAGNOSIS: Sinusitis. POSTOPERATIVE DIAGNOSIS: Sinusitis. PROCEDURE: Endoscopy. SIGNIFICANT FINDINGS: Erythema and edema of mucosa, moderate with discharge from middle meatus on both sides. DESCRIPTION OF PROCEDURE: The patient was placed in seated position. The nose was decongested using Afrin. Scope was inserted into the right and the left nasal cavities. It was passed along the inferior and middle meatus on both sides. Moderate erythema and edema of mucosa along with yellow discharge from the middle meatus was noted on both sides. The scope was removed. The patient tolerated the procedure well. We will do CT sinus. Desean Plunkett MD MTDD
[2017-02-07] MEDS: Piperacillin/Tazobact 3.375 GM in Sodium Chloride 0.9% 100 ML IVPB SCH ×2 (04:10→10:00)
[2017-02-07 06:34] LABS: BASO # 0.1 K/uL (0.0-0.2); BASO % 1.3 % (0.0-2.0); EOS # 0.2 K/uL (0.0-0.7); EOS % 4.2 % (0.0-4.0); HEMATOCRIT 40.4 % (35.0-51.0); LYMPH # 1.4 K/uL (1.0-4.3); LYMPH % 34.7 % (20.0-40.0); MEAN CELL VOLUME 100.6 fL (80.0-94.0); MEAN CORPUSCULAR HEMOGLOBIN 34.8 pg (27.0-31.0); MEAN CORPUSCULAR HGB CONC 34.6 g/dL (33.0-37.0); MEAN PLATELET VOLUME 9.7 fL (7.2-11.7); MONO # 0.4 K/uL (0.0-0.8); MONO % 10.4 % (0.0-10.0); NRBC % 0.1 % (0.0-2.0); RED CELL DISTRIBUTION WIDTH 15.9 % (11.5-14.5)
[2017-02-07 07:52] LABS: ALB/GLOB RATIO 1.4 (1.0-2.1); ALKALINE PHOSPHATASE 139 U/L (38-126); ALT/SGPT 75 U/L (21-72); AST/SGOT 148 U/L (17-59); BLOOD UREA NITROGEN 12 mg/dL (9-20); CARBON DIOXIDE 25 mmol/L (22-30); CHLORIDE 104 mmol/L (98-107); GFR AFRICAN-AMERICAN > 60; GLUCOSE,RANDOM 104 mg/dL (75-110); POTASSIUM 3.5 mmol/L (3.6-5.2); SODIUM 139 mmol/L (132-148); TOTAL PROTEIN 7.2 g/dL (6.3-8.3)
--- NOTE | 2017-02-07 07:55 | CP.PCM.PN ---
Subjective - Date & Time of Evaluation Date of Evaluation: 02/07/17 Time of Evaluation: 07:52 - Subjective Subjective: Nasal congestion constant mod b/l, no change head: atraumatic face: good movements neck: suppple thyroid: no goiter General: well fed, well groomed external nose and ears: no masses, no lesions nose: deviated septum oc/op: no masses, no lesions lips/gums: no masses, no lesions CT images reviewed by me a/p: nasal mass sinusitis deviated septum for biopsy this sunday if medically cleared Objective - Vital Signs/Intake and Output Vital Signs (last 24 hours): Temp Pulse Resp BP Pulse Ox 98 F 93 H 18 164/11 H 95 02/07/17 00:00 02/07/17 01:05 02/07/17 00:00 02/07/17 00:00 02/07/17 00:00 Intake and Output: 02/07/17 02/07/17 06:59 18:59 Intake Total 500 Balance 500 - Medications Medications: Current Medications Acetaminophen (Tylenol 325mg Tab) 650 mg PO Q6 PRN PRN Reason: Pain, moderate (4-7) Last Admin: 02/06/17 18:28 Dose: 650 mg Ergocalciferol (Drisdol 50,000 Intl Units Cap) 1 cap PO Q7D [facility] Last Admin: 02/06/17 13:23 Dose: 1 cap Folic Acid (Folic Acid) 1 mg PO DAILY [facility] Last Admin: 02/06/17 10:00 Dose: 1 mg Gabapentin (Neurontin) 300 mg PO BID [facility] Last Admin: 02/06/17 18:33 Dose: 300 mg Heparin Sodium (Porcine) (Heparin) 5,000 units SC Q12 [facility] Last Admin: 02/06/17 21:30 Dose: 5,000 units Piperacillin Sod/Tazobactam (Sod 3.375 gm/ Sodium Chloride) 100 mls @ 100 mls/ hr IVPB Q6H [facility] Last Admin: 02/07/17 04:10 Dose: 100 mls/hr Lorazepam (Ativan) 1 mg PO Q2H PRN PRN Reason: symptoms of alcohol withdrawl Lorazepam (Ativan) 2 mg IVP Q4H [facility] Last Admin: 02/07/17 04:10 Dose: 2 mg Metoprolol Tartrate (Lopressor) 25 mg PO ONCE [facility] Last Admin: 02/05/17 19:00 Dose: 25 mg Multivitamins (Hexavitamin) 1 tab PO DAILY [facility] Last Admin: 02/06/17 10:00 Dose: 1 tab Nicotine (Nicoderm Cq) 1 patch TD DAILY [facility] Pantoprazole Sodium (Protonix Ec Tab) 20 mg PO DAILY [facility] Last Admin: 02/06/17 10:14 Dose: 20 mg Pneumococcal Polyvalent Vaccine (Pneumovax 23 Vaccine) 0.5 ml IM .ONCE ONE Stop: 02/08/17 14:24 Thiamine HCl (Vitamin B1 Tab) 100 mg PO DAILY [facility] Last Admin: 02/06/17 10:00 Dose: 100 mg Trazodone HCl (Desyrel) 50 mg PO HS PRN PRN Reason: Insomnia Last Admin: 02/06/17 21:24 Dose: 50 mg - Labs Labs: 02/07/17 06:26 02/06/17 01:53
--- NOTE | 2017-02-07 10:08 | CP.PCM.PN ---
<Raymundo Burr - Last Filed: 02/07/17 14:50> Subjective - Date & Time of Evaluation Date of Evaluation: 02/07/17 Time of Evaluation: 10:04 - Subjective Subjective: PGY-[address] Molina No acute events overnight noted. Patient was drowsy and dozed off mid- conversation a couple of times, but per Dr Molina who the saw the patient yesterday, the patient is now much more arousable compared to yesterday. He did not have any complaints. He stated he has ambulated recently. He admits to recent bowel movement. He denied chest pain, shortness of breath, abdominal pain , fever, nausea, vomiting, diarrhea. Objective - Vital Signs/Intake and Output Vital Signs (last 24 hours): Temp Pulse Resp BP Pulse Ox 98 F 100 H 18 153/115 H 95 02/07/17 00:00 02/07/17 06:00 02/07/17 06:00 02/07/17 06:00 02/07/17 06:00 Intake and Output: 02/07/17 02/07/17 06:59 18:59 Intake Total 500 Balance 500 - Medications Medications: Current Medications Acetaminophen (Tylenol 325mg Tab) 650 mg PO Q6 PRN PRN Reason: Pain, moderate (4-7) Last Admin: 02/06/17 18:28 Dose: 650 mg Chlordiazepoxide (Librium) 25 mg PO Q12 [facility] Ergocalciferol (Drisdol 50,000 Intl Units Cap) 1 cap PO Q7D [facility] Last Admin: 02/06/17 13:23 Dose: 1 cap Folic Acid (Folic Acid) 1 mg PO DAILY [facility] Last Admin: 02/06/17 10:00 Dose: 1 mg Gabapentin (Neurontin) 300 mg PO BID [facility] Last Admin: 02/06/17 18:33 Dose: 300 mg Heparin Sodium (Porcine) (Heparin) 5,000 units SC Q12 [facility] Last Admin: 02/06/17 21:30 Dose: 5,000 units Piperacillin Sod/Tazobactam (Sod 3.375 gm/ Sodium Chloride) 100 mls @ 100 mls/ hr IVPB Q6H [facility] Last Admin: 02/07/17 04:10 Dose: 100 mls/hr Lorazepam (Ativan) 1 mg PO Q2H PRN PRN Reason: symptoms of alcohol withdrawl Lorazepam (Ativan) 2 mg IVP Q3H [facility] Metoprolol Tartrate (Lopressor) 25 mg PO ONCE [facility] Last Admin: 02/05/17 19:00 Dose: 25 mg Multivitamins (Hexavitamin) 1 tab PO DAILY [facility] Last Admin: 02/06/17 10:00 Dose: 1 tab Nicotine (Nicoderm Cq) 1 patch TD DAILY [facility] Pantoprazole Sodium (Protonix Ec Tab) 20 mg PO DAILY [facility] Last Admin: 02/06/17 10:14 Dose: 20 mg Pneumococcal Polyvalent Vaccine (Pneumovax 23 Vaccine) 0.5 ml IM .ONCE ONE Stop: 02/08/17 14:24 Thiamine HCl (Vitamin B1 Tab) 100 mg PO DAILY [facility] Last Admin: 02/06/17 10:00 Dose: 100 mg Trazodone HCl (Desyrel) 50 mg PO HS PRN PRN Reason: Insomnia Last Admin: 02/06/17 21:24 Dose: 50 mg - Labs Labs: 02/07/17 06:26 02/07/17 06:59 - Additional Findings Additional findings: - Constitutional Appears: Non-toxic, No Acute Distress - Head Exam Head Exam: NORMAL INSPECTION - Eye Exam Eye Exam: EOMI, Normal appearance - ENT Exam ENT Exam: Mucous Membranes Moist - Neck Exam Neck Exam: Full ROM. absent: Tenderness - Respiratory Exam Respiratory Exam: Clear to Ausculation Bilateral, NORMAL BREATHING PATTERN. absent: Decreased Breath Sounds, Wheezes, Respiratory Distress - Cardiovascular Exam Cardiovascular Exam: REGULAR RHYTHM, +S1, +S2. absent: Bradycardia, Tachycardia - GI/Abdominal Exam GI & Abdominal Exam: Soft, Normal Bowel Sounds. absent: Distended, Tenderness - Extremities Exam Extremities Exam: Full ROM. absent: Pedal Edema - Back Exam Back Exam: Full ROM - Neurological Exam Neurological Exam: Alert, Awake - Psychiatric Exam Psychiatric exam: Normal Affect, Normal Mood - Skin Skin Exam: Dry, Intact, Warm Assessment and Plan - Assessment and Plan (Free Text) Assessment: HTN * Monitor on telemetry * Discontinued hydralazine 10 mg PO QID & discontinued Clonadine 0.1 mg PO Q4 PRN * Discontinued Propanolol 20 mg QID * Norvac 5mg PO QD started 02/07 * 02/05 EKbpm NSR left anterior fascicular block,nonspecific ST and T wave abnormality * 02/05 CXR: no active pulmonary disease * 02/05 admitted to telemetry and continue to monitor * 02/06 changed to regular bed Alcohol use * Alcohol level: 243 * UDS: negative * Ativan 2 mg PO Q3H [facility] and 1 mg IV Q2H PRN * Librium 25mg PO BID * Folic acid, Thiamine, multivitamin, trazodone * Continue current management per primary (Dr. Oconnor) * encouraged alcohol cessation * re-evaluate tomorrow to change medications if necessary Transaminitis * Downtrending; pattern consistent with chronic alcoholism * 02/05 Hep panel: negative * 02/06 abdominal US: echogenic liver possible parechymal disease or fatty infiltration, no focal hepatic mass identified. main portal vein patent with normal directional flow. no intrahepatic bile duct dilatation. no gallstones, no gallbladder wall thickening or pericholecystic edema. negative sonographic Harper's sign. CBD 3mm. Recent episode of melena and hematochezia * H&H stable * Discontinued ibuprofen * F/U FOBT Nasal Mass * nasal mass, sinusitis, deviated septum * ENT consult: Dr. Plunkett * Zosyn 3.375g IVPB Q6H * CPAP at night * sinus CT 02/06 : findings are most compatible with chronic left maxillary sinusitis/sinonasal polyp * For nasal mass biopsy 02/[address] Plunkett Prophylaxis * Protonix 20mg PO QD * Heparin 5000u SC BID * Heart healthy diet * Nicotine patch Discussed with Dr. Molina <Luis Molina H - Last Filed: 02/07/17 17:04> Objective - Vital Signs/Intake and Output Vital Signs (last 24 hours): Temp Pulse Resp BP Pulse Ox 98 F 88 18 154/88 H 99 02/07/17 13:31 02/07/17 13:31 02/07/17 13:31 02/07/17 13:31 02/07/17 13:31 Intake and Output: 02/07/17 02/07/17 06:59 18:59 Intake Total 500 Balance 500 - Medications Medications: Current Medications Acetaminophen (Tylenol 325mg Tab) 650 mg PO Q6 PRN PRN Reason: Pain, moderate (4-7) Last Admin: 02/07/17 15:42 Dose: 650 mg Amlodipine Besylate (Norvasc) 5 mg PO DAILY [facility] Last Admin: 02/07/17 15:41 Dose: 5 mg Chlordiazepoxide (Librium) 25 mg PO Q12 [facility] Last Admin: 02/07/17 10:40 Dose: 25 mg Ergocalciferol (Drisdol 50,000 Intl Units Cap) 1 cap PO Q7D [facility] Last Admin: 02/06/17 13:23 Dose: 1 cap Folic Acid (Folic Acid) 1 mg PO DAILY [facility] Last Admin: 02/07/17 10:41 Dose: 1 mg Gabapentin (Neurontin) 300 mg PO BID [facility] Last Admin: 02/07/17 10:42 Dose: 300 mg Heparin Sodium (Porcine) (Heparin) 5,000 units SC Q12 [facility] Last Admin: 02/07/17 10:43 Dose: 5,000 units Piperacillin Sod/Tazobactam Sod (Zosyn 3.375 Gm Iv Premix) 3.375 gm in 50 mls @ 100 mls/hr IVPB Q6H [facility] Last Admin: 02/07/17 15:42 Dose: 100 mls/hr Lorazepam (Ativan) 1 mg PO Q2H PRN PRN Reason: symptoms of alcohol withdrawl Lorazepam (Ativan) 2 mg IVP Q3H [facility] Last Admin: 02/07/17 15:41 Dose: 2 mg Metoprolol Tartrate (Lopressor) 25 mg PO ONCE [facility] Last Admin: 02/05/17 19:00 Dose: 25 mg Multivitamins (Hexavitamin) 1 tab PO DAILY [facility] Last Admin: 02/07/17 10:40 Dose: 1 tab Nicotine (Nicoderm Cq) 1 patch TD DAILY [facility] Last Admin: 02/07/17 11:16 Dose: 1 patch Pantoprazole Sodium (Protonix Ec Tab) 20 mg PO DAILY [facility] Last Admin: 02/07/17 11:16 Dose: 20 mg Pneumococcal Polyvalent Vaccine (Pneumovax 23 Vaccine) 0.5 ml IM .ONCE ONE Stop: 02/08/17 14:24 Thiamine HCl (Vitamin B1 Tab) 100 mg PO DAILY [facility] Last Admin: 02/07/17 10:41 Dose: 100 mg Trazodone HCl (Desyrel) 50 mg PO HS PRN PRN Reason: Insomnia Last Admin: 02/06/17 21:24 Dose: 50 mg - Labs Labs: 02/07/17 06:26 02/07/17 06:59 Attending/Attestation - Attestation I have personally seen and examined this patient.: Yes I have fully participated in the care of the patient.: Yes I have reviewed all pertinent clinical information, including history, physical exam and plan: Yes Notes (Text): 02/07/17 17:04 Medical attending: Patient was was seen and examined by me as well, agrees the above note by chief medical technologist. Yesterday when I saw the patient I changed him over to IV Ativan 2 mg every 4 hours on a scheduled basis. And today today when I actually increased his Ativan to 2 mg IV every 3 hours on a scheduled basis furthermore the LFTs are continued to decline. So we placed the patient on Librium 25 by mouth twice a day as well. When I saw him today he's actually answering questions much better than the previous day. He tells me that he has to drink alcohol just to feel normal. I asked him to give me a few examples, he was able to say that in the mornings as soon as he wakes up he has to drink alcohol otherwise will develop a lot of shaking tremors. He has difficulty trying to sleep on his own he is very aware of his situation with the alcohol. We will reevaluate the patient again tomorrow. If he does okay overnight and into tomorrow morning we'll consider decreasing the Ativan that we have him on at this time. thank you Luis Molina
[2017-02-07] MEDS: Multiple Vitamins Tab PO SCH (10:40)
[2017-02-07] MEDS ORDERED: Potassium Chloride 20 mEq ER Tab PO ONE ×2 (10:44→15:45)
[2017-02-07] MEDS: Pantoprazole 20 mg EC Tab PO SCH (11:16)
[2017-02-07] MEDS: Piperacill/Tazo 3.375gm in Dex 3.375 GM/50 ML BAG IVPB SCH ×2 (15:42→21:39)
[2017-02-07 23:52] LABS: BLOOD UREA NITROGEN 13 mg/dL (9-20); CALCIUM 9.1 mg/dl (8.6-10.4); CARBON DIOXIDE 25 mmol/L (22-30); CHLORIDE 105 mmol/L (98-107); GFR AFRICAN-AMERICAN > 60; GLUCOSE,RANDOM 101 mg/dL (75-110); MAGNESIUM 1.8 mg/dL (1.6-2.3); PHOSPHOROUS 5.1 mg/dL (2.5-4.5); POTASSIUM 4.1 mmol/L (3.6-5.2); SODIUM 138 mmol/L (132-148)
[2017-02-08] MEDS: Piperacill/Tazo 3.375gm in Dex 3.375 GM/50 ML BAG IVPB SCH ×4 (03:25→22:37)
[2017-02-08] MEDS: Dexmedetomidine Hydrochloride 400 MCG in Sodium Chloride 0.9% 96 ML IV PRN ×8 (05:16→23:32)
[2017-02-08 06:28] LABS: EOS # 0.2 K/uL (0.0-0.7); EOS % 4.1 % (0.0-4.0); HEMATOCRIT 41.4 % (35.0-51.0); LYMPH # 1.6 K/uL (1.0-4.3); LYMPH % 36.9 % (20.0-40.0); MEAN CELL VOLUME 100.4 fL (80.0-94.0); MEAN CORPUSCULAR HEMOGLOBIN 34.1 pg (27.0-31.0); MEAN PLATELET VOLUME 9.8 fL (7.2-11.7); MONO # 0.6 K/uL (0.0-0.8); MONO % 13.3 % (0.0-10.0); NRBC % 0.1 % (0.0-2.0); RED CELL DISTRIBUTION WIDTH 15.4 % (11.5-14.5); WHITE BLOOD COUNT 4.2 K/uL (4.8-10.8)
[2017-02-08 06:52] LABS: ALB/GLOB RATIO 0.9 (1.0-2.1); ALKALINE PHOSPHATASE 134 U/L (38-126); ALT/SGPT 85 U/L (21-72); AST/SGOT 122 U/L (17-59); BILIRUBIN,TOTAL 1.5 mg/dL (0.2-1.3); BLOOD UREA NITROGEN 14 mg/dL (9-20); CALCIUM 9.1 mg/dl (8.6-10.4); CARBON DIOXIDE 27 mmol/L (22-30); CHLORIDE 105 mmol/L (98-107); GFR AFRICAN-AMERICAN > 60; GLUCOSE,RANDOM 116 mg/dL (75-110); POTASSIUM 3.8 mmol/L (3.6-5.2); SODIUM 140 mmol/L (132-148); TOTAL PROTEIN 8.8 g/dL (6.3-8.3)
--- NOTE | 2017-02-08 07:23 | CP.PCM.CON ---
History of Present Illness - History of Present Illness History of Present Illness: impending DTs, on intravenous sedation and also benzodiazepine. patient condition is getting worse. patient was having increasingly agitated, and also tachypneic, tachycardic, significant symptoms of withdrawal noted, so he was placed on intravenous Precedex, also receiving benzodiazepine. Patient now having increasing symptoms of sleep apnea, attempted BiPAP he is taking it out, he is not cooperative but his oxygen saturation isnormal. episodically distress noted HPI: Patient is a 37M with PMH alcoholism and untreated HTN who is here for alcohol detox. Medicine was consulted for uncontrolled HTN. Patient says he sees a doctor outside the hospital but cannot remember his name. He says he saw him yesterday and the doctor prescribed "65 mg of some blood pressure medication " that he cannot remember the name of. Patient says he filled the medication at a pharmacy he cannot recall but did not take it yet because he came here. Patient admits to tremors, occipital headache and ringing in the left ear of 3 days duration. He also admits to cough productive of green sputum, occasional dyspnea, and sore throat for 1 year. Patient says he noticed an pruritic rash on his left foot near the ankle that started yesterday. Of note, patient says that 1 month ago he noticed dark tarry stool and then 2 weeks ago he had a BM with blood in the toilet bowl but did not notice any on the toilet paper when he wiped. Patient has not noticed blood in his stool since then. He denies fever , chills, dizziness, chest pain, palpitations, abdominal pain, n/v/d/c, dysuria , hematuria, calf pain, and LE swelling. 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 Extremities no pedal edema patient is responding to deep stability, but easily sleeping, receiving intravenous sedation Assessment and recommendation: 37-year-of with a history of alcoholism and hypertension, admitted with a colicky abdominal pain Patient is also having symptoms and signs of sleep apnea. increasing symptoms of sleep apnea noted. Attempted CPAP patient is not keeping it. We'll closely monitor. closely monitor the airway. Past Patient History - Past Medical History & Family History Past Medical History?: Yes - Past Social History Smoking Status: Heavy Smoker > 10 Cigarettes Daily - CARDIAC Hx Cardiac Disorders: No Hx Hypertension: Yes - PULMONARY Hx Tuberculosis: No - NEUROLOGICAL HX Cerebrovascular Accident: No Hx Seizures: Yes (last March 2015) - HEMATOLOGICAL/ONCOLOGICAL Hx Cancer: No Hx Human Immunodeficiency Virus (HIV): No - MUSCULOSKELETAL/RHEUMATOLOGICAL Hx Falls: Yes - GASTROINTESTINAL Hx Pancreatitis: Yes - GENITOURINARY/GYNECOLOGICAL Hx Sexually Transmitted Disorders: No - PSYCHIATRIC Hx Substance Use: No - SURGICAL HISTORY Hx Surgeries: No - ANESTHESIA Hx Anesthesia: No Meds Allergies/Adverse Reactions: Allergies Allergy/AdvReac Type Severity Reaction Status Date / Time No Known Allergies Allergy Verified 02/05/17 05:53 - Medications Medications: Current Medications Acetaminophen (Tylenol 325mg Tab) 650 mg PO Q6 PRN PRN Reason: Pain, moderate (4-7) Last Admin: 02/07/17 15:42 Dose: 650 mg Amlodipine Besylate (Norvasc) 5 mg PO DAILY [facility] Last Admin: 02/07/17 15:41 Dose: 5 mg Ergocalciferol (Drisdol 50,000 Intl Units Cap) 1 cap PO Q7D [facility] Last Admin: 02/06/17 13:23 Dose: 1 cap Folic Acid (Folic Acid) 1 mg PO DAILY [facility] Last Admin: 02/07/17 10:41 Dose: 1 mg Gabapentin (Neurontin) 300 mg PO BID [facility] Last Admin: 02/07/17 17:52 Dose: 300 mg Heparin Sodium (Porcine) (Heparin) 5,000 units SC Q12 [facility] Last Admin: 02/07/17 21:38 Dose: 5,000 units Piperacillin Sod/Tazobactam Sod (Zosyn 3.375 Gm Iv Premix) 3.375 gm in 50 mls @ 100 mls/hr IVPB Q6H [facility] Last Admin: 02/08/17 03:25 Dose: 100 mls/hr Dexmedetomidine HCl 400 mcg/ (Sodium Chloride) 100 mls @ 5.44 mls/hr IV TITR PRN; Protocol; 0.2 MCG/KG/HR PRN Reason: Symptoms of alcohol withdrawl Last Titration: 02/08/17 06:31 Dose: 0.2 mcg/kg/hr, 5.44 mls/hr Lorazepam (Ativan) 2 mg IVP Q3H [facility] Last Admin: 02/08/17 06:29 Dose: Not Given Lorazepam (Ativan) 2 mg IVP Q2 PRN PRN Reason: Symptoms of alcohol withdrawl Last Admin: 02/08/17 01:46 Dose: 2 mg Metoprolol Tartrate (Lopressor) 25 mg PO ONCE [facility] Last Admin: 02/05/17 19:00 Dose: 25 mg Multivitamins (Hexavitamin) 1 tab PO DAILY [facility] Last Admin: 02/07/17 10:40 Dose: 1 tab Nicotine (Nicoderm Cq) 1 patch TD DAILY [facility] Last Admin: 02/07/17 11:16 Dose: 1 patch Pantoprazole Sodium (Protonix Ec Tab) 20 mg PO DAILY [facility] Last Admin: 02/07/17 11:16 Dose: 20 mg Pneumococcal Polyvalent Vaccine (Pneumovax 23 Vaccine) 0.5 ml IM .ONCE ONE Stop: 02/08/17 14:24 Thiamine HCl (Vitamin B1 Tab) 100 mg PO DAILY [facility] Last Admin: 02/07/17 10:41 Dose: 100 mg Trazodone HCl (Desyrel) 50 mg PO HS PRN PRN Reason: Insomnia Last Admin: 02/07/17 21:40 Dose: 50 mg Results - Vital Signs Recent Vital Signs: Last Vital Signs Temp 98.1 F 02/08/17 05:00 Pulse 98 H 02/08/17 05:00 Resp 16 02/08/17 05:00 BP 156/98 H 02/08/17 05:00 Pulse Ox 96 02/08/17 05:00 - Labs Result Diagrams: 02/08/17 06:21 02/08/17 06:21 Labs: Laboratory Results - last 24 hr 02/07/17 02/07/17 02/08/17 06:59 23:35 06:21 WBC 4.2 L RBC 4.12 L Hgb 14.1 Hct 41.4 MCV 100.4 H MCH 34.1 H MCHC 34.0 RDW 15.4 H Plt Count 123 L MPV 9.8 Neut % (Auto) 44.7 L Lymph % (Auto) 36.9 [place] % (Auto) 13.3 H Eos % (Auto) 4.1 H Baso % (Auto) 1.0 Neut # 1.9 Lymph # 1.6 [place] # 0.6 Eos # 0.2 Baso # 0.0 Sodium 139 138 Potassium 3.5 L 4.1 Chloride 104 105 Carbon Dioxide 25 25 Anion Gap 14 12 BUN 12 13 Creatinine 0.7 L 0.6 L Est GFR ( Amer) > 60 > 60 Est GFR (Non-Af Amer) > 60 > 60 Random Glucose 104 101 Calcium 9.0 9.1 Phosphorus 5.1 H Magnesium 1.8 Total Bilirubin 2.0 H AST 148 H D ALT 75 H D Alkaline Phosphatase 139 H Total Protein 7.2 Albumin 4.1 Globulin 3.0 Albumin/Globulin Ratio 1.4 02/08/17 06:21 WBC RBC Hgb Hct MCV MCH MCHC RDW Plt Count MPV Neut % (Auto) Lymph % (Auto) [place] % (Auto) Eos % (Auto) Baso % (Auto) Neut # Lymph # [place] # Eos # Baso # Sodium 140 Potassium 3.8 Chloride 105 Carbon Dioxide 27 Anion Gap 11 BUN 14 Creatinine 0.7 L Est GFR ( Amer) > 60 Est GFR (Non-Af Amer) > 60 Random Glucose 116 H Calcium 9.1 Phosphorus Magnesium Total Bilirubin 1.5 H AST 122 H ALT 85 H Alkaline Phosphatase 134 H Total Protein 8.8 H Albumin 4.2 Globulin 4.6 H Albumin/Globulin Ratio 0.9 L
[2017-02-08] MEDS: Multiple Vitamins Tab PO SCH (10:00)
[2017-02-08] MEDS: Pantoprazole 20 mg EC Tab PO SCH (10:00)
[2017-02-08 10:20] LABS: MAGNESIUM 1.6 mg/dL (1.6-2.3); PHOSPHOROUS 4.5 mg/dL (2.5-4.5)
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
--- NOTE | 2017-02-08 12:12 | CP.PCM.PN ---
Subjective - Date & Time of Evaluation Date of Evaluation: 02/08/17 Time of Evaluation: 12:11 - Subjective Subjective: patient not cleared for surgery. I spoke to Dr. Molina. When patient cleared he will let me know and I will do the biopsy Objective - Vital Signs/Intake and Output Vital Signs (last 24 hours): Temp Pulse Resp BP Pulse Ox 98.4 F 88 24 161/110 H 98 02/08/17 07:30 02/08/17 07:30 02/08/17 07:30 02/08/17 07:30 02/08/17 07:30 Intake and Output: 02/08/17 02/08/17 06:59 18:59 Intake Total 300 200 Output Total 600 Balance -300 200 - Medications Medications: Current Medications Acetaminophen (Tylenol 325mg Tab) 650 mg PO Q6 PRN PRN Reason: Pain, moderate (4-7) Last Admin: 02/07/17 15:42 Dose: 650 mg Amlodipine Besylate (Norvasc) 5 mg PO DAILY [facility] Last Admin: 02/08/17 10:00 Dose: Not Given Ergocalciferol (Drisdol 50,000 Intl Units Cap) 1 cap PO Q7D [facility] Last Admin: 02/06/17 13:23 Dose: 1 cap Folic Acid (Folic Acid) 1 mg PO DAILY [facility] Last Admin: 02/08/17 10:00 Dose: Not Given Gabapentin (Neurontin) 300 mg PO BID [facility] Last Admin: 02/08/17 10:00 Dose: Not Given Heparin Sodium (Porcine) (Heparin) 5,000 units SC Q12 [facility] Last Admin: 02/08/17 10:41 Dose: 5,000 units Hydralazine HCl (Apresoline) 10 mg IVP Q6H PRN PRN Reason: hypertension Piperacillin Sod/Tazobactam Sod (Zosyn 3.375 Gm Iv Premix) 3.375 gm in 50 mls @ 100 mls/hr IVPB Q6H [facility] Last Admin: 02/08/17 10:40 Dose: 100 mls/hr Dexmedetomidine HCl 400 mcg/ (Sodium Chloride) 100 mls @ 5.44 mls/hr IV TITR PRN; Protocol; 0.2 MCG/KG/HR PRN Reason: Symptoms of alcohol withdrawl Last Admin: 02/08/17 11:36 Dose: 2 mcg/kg/hr, 54.43 mls/hr Lorazepam (Ativan) 2 mg IVP Q3H [facility] Last Admin: 02/08/17 09:30 Dose: Not Given Lorazepam (Ativan) 2 mg IVP Q2 PRN PRN Reason: Symptoms of alcohol withdrawl Last Admin: 02/08/17 09:15 Dose: 2 mg Metoprolol Tartrate (Lopressor) 25 mg PO ONCE [facility] Last Admin: 02/05/17 19:00 Dose: 25 mg Multivitamins (Hexavitamin) 1 tab PO DAILY [facility] Last Admin: 02/08/17 10:00 Dose: Not Given Nicotine (Nicoderm Cq) 1 patch TD DAILY [facility] Last Admin: 02/08/17 10:41 Dose: 1 patch Pantoprazole Sodium (Protonix Ec Tab) 20 mg PO DAILY [facility] Last Admin: 02/08/17 10:00 Dose: Not Given Pneumococcal Polyvalent Vaccine (Pneumovax 23 Vaccine) 0.5 ml IM .ONCE ONE Stop: 02/08/17 14:24 Thiamine HCl (Vitamin B1 Tab) 100 mg PO DAILY [facility] Last Admin: 02/08/17 10:00 Dose: Not Given Trazodone HCl (Desyrel) 50 mg PO HS PRN PRN Reason: Insomnia Last Admin: 02/07/17 21:40 Dose: 50 mg - Labs Labs: 02/08/17 06:21 02/08/17 06:21
[2017-02-08] MEDS ORDERED: Pneumococcal 23-Valent Vaccine IM ONE (14:23)
[2017-02-08] MEDS ORDERED: Multivitamin (MVI) 10 ML, Thiamine 100 MG, Folic Acid 1 MG in Sodium Chloride 0.9% 1,00... IV ONE (17:00)
[2017-02-09] MEDS: Dexmedetomidine Hydrochloride 400 MCG in Sodium Chloride 0.9% 96 ML IV PRN ×5 (01:54→15:20)
[2017-02-09] MEDS: Piperacill/Tazo 3.375gm in Dex 3.375 GM/50 ML BAG IVPB SCH (04:42)
[2017-02-09 06:40] LABS: BASO % 0.6 % (0.0-2.0); EOS # 0.1 K/uL (0.0-0.7); EOS % 1.8 % (0.0-4.0); HEMATOCRIT 43.3 % (35.0-51.0); LYMPH # 1.1 K/uL (1.0-4.3); LYMPH % 17.8 % (20.0-40.0); MEAN CELL VOLUME 100.3 fL (80.0-94.0); MEAN CORPUSCULAR HEMOGLOBIN 34.3 pg (27.0-31.0); MEAN CORPUSCULAR HGB CONC 34.2 g/dL (33.0-37.0); MEAN PLATELET VOLUME 9.7 fL (7.2-11.7); MONO # 0.6 K/uL (0.0-0.8); MONO % 9.3 % (0.0-10.0); RED CELL DISTRIBUTION WIDTH 15.3 % (11.5-14.5)
[2017-02-09 07:15] LABS: ALB/GLOB RATIO 0.9 (1.0-2.1); ALKALINE PHOSPHATASE 129 U/L (38-126); ALT/SGPT 87 U/L (21-72); AST/SGOT 151 U/L (17-59); BLOOD UREA NITROGEN 12 mg/dL (9-20); CALCIUM 9.1 mg/dl (8.6-10.4); CARBON DIOXIDE 24 mmol/L (22-30); CHLORIDE 108 mmol/L (98-107); GFR AFRICAN-AMERICAN > 60; GLUCOSE,RANDOM 119 mg/dL (75-110); MAGNESIUM 1.8 mg/dL (1.6-2.3); PHOSPHOROUS 4.2 mg/dL (2.5-4.5); POTASSIUM 3.9 mmol/L (3.6-5.2); SODIUM 142 mmol/L (132-148); TOTAL PROTEIN 8.7 g/dL (6.3-8.3)
[2017-02-09] MEDS: Lactated Ringer's 1,000 ML IV SCH (09:29)
[2017-02-09] MEDS ORDERED: Folic Acid 1 MG, Thiamine 100 MG, Multivitamin (MVI) 10 ML in Dextrose 5% In Water 1,00... IV SCH (09:30)
[2017-02-09] MEDS: Pantoprazole 20 mg EC Tab PO SCH (09:40)
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
[2017-02-09] MEDS: Multiple Vitamins Tab PO SCH (09:59)
[2017-02-09] MEDS ORDERED: Thiamine 100 mg/ml Inj IV SCH (10:00)
--- NOTE | 2017-02-09 13:40 | PCM.PYCHPN ---
Psychiatric Progress Note - Psychiatric Progress Note Patient seen today, length of contact: 15 min Patient Chief Complaint: "OK" Problems Identified/Issues Discussed: The pt is seen, chart reviewed, case discussed with staff. He is in DT. He says OK but he is not OK; thinks it is "1980," doesn't know the month, day etc., he answered "Michael" to question about place. VS still high and as per his 1:1 payment analyst, he sometimes hallucinates. He has been agitated and aggressive as well. He was somewhat restless when the data analyst report writer saw him. Detox is going on but he was also given precedex Medication Change: Yes (detox changes daily) Medical Record Reviewed: Yes Mental Status Examination - Cognitive Function Orientation: Situation (disoriented) Memory: Impaired Attention: Poor Concentration: Poor Association: Loose Fund of Knowledge: WNL - Mood Mood: Anxious - Affect Affect: Constricted, Depressed - Speech Speech: Slurred - Formal Thought Process Formal Thought Process: Hallucinations - Suicidal Ideation Suicidal Ideation: No - Homicidal Ideation Homicidal Ideation: No Goal/Treatment Plan - Goal/Treatment Plan Need for Continued Stay: Discharge may exacerbated symptoms, Severe functional impairment, Other Progress Toward Problem(s) and Goals/Treatment Plan: Ativan detox continues PLEASE GIVEN ADDITIONAL ATIVAN IF HE IS IN WITHDRAWAL, PER SERA Gabapentin for augmentation As needed medications Refer to rehab or IOP, and self-help groups.
--- NOTE | 2017-02-09 14:55 | CP.CCUPN ---
CCU Subjective - Physician Review Subjective (Free Text): 02/09/17 14:51 PAtient seen and examined at bedside. Patient sedated on precedex CCU Objective - Vital Signs / Intake & Output Vital Signs (Last 4 hours): Vital Signs Pulse Resp BP Pulse Ox 02/09/17 14:00 80 16 100 02/09/17 13:57 83 13 161/101 H 100 02/09/17 13:00 88 16 172/101 H 98 02/09/17 12:57 74 35 H 172/101 H 94 L 02/09/17 12:00 73 42 H 99 02/09/17 11:57 75 33 H 164/104 H 98 02/09/17 11:00 75 27 H 98 02/09/17 10:57 73 34 H 165/95 H 98 Intake and Output (Last 8hrs): Intake & Output 02/08/17 02/09/17 02/09/17 22:59 06:59 14:59 Intake Total 1034.5 1176.4 524.3 Output Total 900 500 Balance 1034.5 276.4 24.3 Intake: IV 300 300 100 Intake, IV Amount 734.5 876.4 204.3 Left Forearm 334.5 326.4 204.3 Right Wrist 400 550 Oral 0 0 220 Output: Urine 900 500 Urine, Voided 900 500 Emesis 0 Other: # Voids Urine, Voided 0 # Bowel Movements 0 0 0 - Physical Exam Physical Exam Limitations: Positive for: Altered Mental Status Head: Positive for: Atraumatic, Normocephalic Pupils: Positive for: PERRL Respiratory/Chest: Positive for: Good Air Exchange. Negative for: Respiratory Distress Cardiovascular: Positive for: Regular Rate and Rhythm, Murmurs, Normal S1, S2 Abdomen: Positive for: Normal Bowel Sounds. Negative for: Peritoneal Signs Upper Extremity: Positive for: Normal Inspection Lower Extremity: Positive for: Normal Inspection - Medications Active Medications: Active Medications Generic Name Dose Route Start Last Admin Trade Name Freq PRN Reason Stop Dose Admin Acetaminophen 650 mg 02/06/17 17:27 02/07/17 15:42 Tylenol 325mg Tab PO 650 mg Q6 PRN Administration Pain, moderate (4-7) Amlodipine Besylate 5 mg 02/07/17 15:00 02/09/17 09:13 Norvasc PO 5 mg DAILY RA Administration Ergocalciferol 1 cap 02/06/17 10:00 02/06/17 13:23 Drisdol 50,000 Intl Units Cap PO 1 cap Q7D RA Administration Folic Acid 1 mg 02/05/17 12:45 02/09/17 09:59 Folic Acid PO Not Given DAILY RA Gabapentin 300 mg 02/05/17 18:00 02/08/17 18:00 Neurontin PO Not Given BID RA Heparin Sodium (Porcine) 5,000 units 02/06/17 10:00 02/09/17 09:30 Heparin SC 5,000 units Q12 RA Administration Hydralazine HCl 10 mg 02/08/17 10:57 02/09/17 03:05 Apresoline IVP 10 mg Q6H PRN Administration hypertension Dexmedetomidine HCl 400 mcg/ 100 mls @ 5.44 mls/hr 02/08/17 04:54 02/09/17 09 :43 Sodium Chloride IV 1.5 mcg/kg/hr TITR PRN 40.82 mls/hr Symptoms of alcohol withdrawl Administration Protocol 0.2 MCG/KG/HR Folic Acid 1 mg/ Thiamine HCl 1,011.2 mls @ 40 mls/hr 02/09/17 09:30 09:45 100 mg/ Multivitamins/Vitamin IV 40 mls/hr C 10 ml/ Dextrose .Q24H RA Administration Lactated Ringer's 1,000 mls @ 60 mls/hr 02/09/17 09:00 02/09/17 09:29 Lactated Ringer's IV 60 mls/hr .[id number] RA Administration Ketorolac Tromethamine 30 mg 02/09/17 14:31 Toradol IVP Q6H PRN Pain Lorazepam 2 mg 02/07/17 23:31 02/09/17 05:53 Ativan IVP 2 mg Q2 PRN Administration Symptoms of alcohol withdrawl Metoprolol Tartrate 25 mg 02/05/17 18:00 02/05/17 19:00 Lopressor PO 25 mg ONCE RA Administration Multivitamins 1 tab 02/05/17 12:45 02/09/17 09:59 Hexavitamin PO Not Given DAILY [facility] Nicotine 1 patch 02/07/17 10:00 02/09/17 09:40 Nicoderm Cq TD 1 patch DAILY [facility] Administration Pantoprazole Sodium 20 mg 02/05/17 12:45 02/09/17 09:40 Protonix Ec Tab PO 20 mg DAILY [facility] Administration Thiamine HCl 100 mg 02/05/17 12:45 02/09/17 10:01 Vitamin B1 Tab PO Not Given DAILY RA Thiamine HCl 100 mg 02/09/17 10:00 02/09/17 10:00 Vitamin B1 Inj IV Not Given DAILY RA Trazodone HCl 50 mg 02/05/17 12:35 02/09/17 09:40 Desyrel PO 50 mg HS PRN Administration Insomnia - Patient Studies Lab Studies: Lab Studies 02/09/17 02/09/17 Range/Units 06:18 06:18 WBC 6.0 (4.8-10.8) K/uL RBC 4.32 L (4.40-5.90) Mil/uL Hgb 14.8 (12.0-18.0) g/dL Hct 43.3 (35.0-51.0) % MCV 100.3 H (80.0-94.0) fL MCH 34.3 H (27.0-31.0) pg MCHC 34.2 (33.0-37.0) g/dL RDW 15.3 H (11.5-14.5) % Plt Count 132 (130-400) K/uL MPV 9.7 (7.2-11.7) fL Neut % (Auto) 70.5 (50.0-75.0) % Lymph % (Auto) 17.8 L (20.0-40.0) % [place] % (Auto) 9.3 (0.0-10.0) % Eos % (Auto) 1.8 (0.0-4.0) % Baso % (Auto) 0.6 (0.0-2.0) % Neut # 4.2 (1.8-7.0) K/uL Lymph # 1.1 (1.0-4.3) K/uL [place] # 0.6 (0.0-0.8) K/uL Eos # 0.1 (0.0-0.7) K/uL Baso # 0.0 (0.0-0.2) K/uL Sodium 142 (132-148) mmol/L Potassium 3.9 (3.6-5.2) mmol/L Chloride 108 H (98-107) mmol/L Carbon Dioxide 24 (22-30) mmol/L Anion Gap 14 (10-20) BUN 12 (9-20) mg/dL Creatinine 0.6 L (0.8-1.5) mg/dL Est GFR ( Amer) > 60 Est GFR (Non-Af Amer) > 60 Random Glucose 119 H (75-110) mg/dL Calcium 9.1 (8.6-10.4) mg/dl Phosphorus 4.2 (2.5-4.5) mg/dL Magnesium 1.8 (1.6-2.3) mg/dL Total Bilirubin 2.0 H (0.2-1.3) mg/dL AST 151 H D (17-59) U/L ALT 87 H (21-72) U/L Alkaline Phosphatase 129 H (38-126) U/L Total Protein 8.7 H (6.3-8.3) g/dL Albumin 4.2 (3.5-5.0) g/dL Globulin 4.5 H (2.2-3.9) gm/dL Albumin/Globulin Ratio 0.9 L (1.0-2.1) Laboratory Results - last 24 hr 02/09/17 02/09/17 06:18 06:18 WBC 6.0 RBC 4.32 L Hgb 14.8 Hct 43.3 MCV 100.3 H MCH 34.3 H MCHC 34.2 RDW 15.3 H Plt Count 132 MPV 9.7 Neut % (Auto) 70.5 Lymph % (Auto) 17.8 L [place] % (Auto) 9.3 Eos % (Auto) 1.8 Baso % (Auto) 0.6 Neut # 4.2 Lymph # 1.1 [place] # 0.6 Eos # 0.1 Baso # 0.0 Sodium 142 Potassium 3.9 Chloride 108 H Carbon Dioxide 24 Anion Gap 14 BUN 12 Creatinine 0.6 L Est GFR ( Amer) > 60 Est GFR (Non-Af Amer) > 60 Random Glucose 119 H Calcium 9.1 Phosphorus 4.2 Magnesium 1.8 Total Bilirubin 2.0 H AST 151 H D ALT 87 H Alkaline Phosphatase 129 H Total Protein 8.7 H Albumin 4.2 Globulin 4.5 H Albumin/Globulin Ratio 0.9 L Critical Care Progress Note - Ventilator Checklist Daily Sedation Vacation: Yes - Nutrition Nutrition: Nutrition Category Date Time Status Soft [Dysphagia/Modified Consistency Diet] [DIET] Diets 02/09/17 Lunch Active Assessment/Plan - Assessment and Plan (Free Text) Plan: Delirium Tremens: currently on precedex, will switch to oral librium (alt 87) -continue librium 150 mg stat and 75 mg q8hrs -titrate off precedex -start oral diet as patient more awake -continue oral folate/thiamine/MVI -Continue banana bag -Psych eval/follow up -monitor BP as patient more awake. -Still confused -will benefit from 1:1 observation 2nd agitation. - Date & Time Date: 02/09/17 Time: 14:58
--- NOTE | 2017-02-09 21:24 | US ---
EXAM: US Abdomen Complete CLINICAL HISTORY: 37 years old, male; Abnormal findings; Abnormal lab test; Other: Increased t alfredo TECHNIQUE: Real-time ultrasound of the abdomen (complete) with image documentation. COMPARISON: US - ABDOMEN LIMITED 2017-02-06 08:20 FINDINGS: Liver: Enlarged, 24.0 cm. Fatty infiltration. No mass. No intrahepatic ductal dilatation. Gallbladder: No gallstones. No wall thickening. No pericholecystic fluid. No sonographic Harper's sign. Common bile duct: No dilatation. No stones. Pancreas: Unremarkable as visualized. Kidneys: Normal echogenicity. No hydronephrosis. Spleen: No splenomegaly. Aorta: Unremarkable. No aneurysm. Inferior vena cava: Unremarkable. IMPRESSION: 1.No acute findings. 2.Non-acute findings are described above.
[2017-02-10] MEDS: Lactated Ringer's 1,000 ML IV SCH (02:15)
[2017-02-10 06:17] LABS: BASO % 0.6 % (0.0-2.0); EOS # 0.2 K/uL (0.0-0.7); EOS % 3.3 % (0.0-4.0); HEMATOCRIT 38.2 % (35.0-51.0); LYMPH # 1.3 K/uL (1.0-4.3); LYMPH % 25.2 % (20.0-40.0); MEAN CELL VOLUME 100.7 fL (80.0-94.0); MEAN CORPUSCULAR HEMOGLOBIN 34.5 pg (27.0-31.0); MEAN CORPUSCULAR HGB CONC 34.3 g/dL (33.0-37.0); MONO # 0.7 K/uL (0.0-0.8); MONO % 13.3 % (0.0-10.0); NRBC % 0.1 % (0.0-2.0); RED CELL DISTRIBUTION WIDTH 15.4 % (11.5-14.5); WHITE BLOOD COUNT 5.3 K/uL (4.8-10.8)
[2017-02-10 06:29] LABS: ALB/GLOB RATIO 0.9 (1.0-2.1); BILIRUBIN,TOTAL 1.6 mg/dL (0.2-1.3); CALCIUM 8.5 mg/dl (8.6-10.4); GFR AFRICAN-AMERICAN > 60; GLUCOSE,RANDOM 104 mg/dL (75-110); TOTAL PROTEIN 7.8 g/dL (6.3-8.3)
[2017-02-10 06:31] LABS: ALKALINE PHOSPHATASE 122 U/L (38-126); ALT/SGPT 75 U/L (21-72); AST/SGOT 123 U/L (17-59); BLOOD UREA NITROGEN 10 mg/dL (9-20); CARBON DIOXIDE 26 mmol/L (22-30); CHLORIDE 105 mmol/L (98-107); POTASSIUM 3.5 mmol/L (3.6-5.2); SODIUM 136 mmol/L (132-148)
[2017-02-10] MEDS ORDERED: CALCIUM GLUCONATE IVPB ONE ×2 (07:37→08:00)
[2017-02-10] MEDS ORDERED: SODIUM CHLORIDE 0.45% IVPB ONE ×2 (07:37→08:00)
[2017-02-10] MEDS: Potassium Chloride 20 mEq/15 ml LIQ UD PO SCH ×2 (08:29→14:15)
[2017-02-10] MEDS ORDERED: Labetalol 25mg/5ml Syringe IVP STA (09:12)
[2017-02-10] MEDS: Pantoprazole 20 mg EC Tab PO SCH (09:38)
[2017-02-10] MEDS: Labetalol Hydrochloride 300 mg Tab PO SCH ×3 (10:00→17:52)
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
[2017-02-10] MEDS: Multiple Vitamins Tab PO SCH (14:14)
--- NOTE | 2017-02-10 21:37 | CP.CCUPN ---
CCU Subjective - Physician Review Subjective (Free Text): 02/09/17 14:51 PAtient seen and examined at bedside. Patient off precedex. MOre awake, alert, sittign up no tremors 02/10/17 21:36 CCU Objective - Vital Signs / Intake & Output Vital Signs (Last 4 hours): Vital Signs Temp Pulse Resp BP Pulse Ox 02/10/17 21:13 96 H 27 H 118/60 93 L 02/10/17 20:36 94 H 25 H 135/108 H 95 02/10/17 20:00 99.6 F 95 H 29 H 93 L 02/10/17 19:36 138/78 02/10/17 19:00 95 H 25 H 93 L 02/10/17 18:36 98 H 14 147/78 94 L Intake and Output (Last 8hrs): Intake & Output 02/10/17 02/10/17 02/10/17 06:59 14:59 22:59 Intake Total 1040.8 1230 300 Output Total 600 0 460 Balance 440.8 1230 -160 Intake: IV 100 Intake, IV Amount 840.8 550 Left Forearm 200.8 120 Left Forearm Y-site 480 430 Right Wrist 160 Oral 100 680 300 Output: Urine 600 460 Condom 600 460 Emesis 0 0 Other: # Bowel Movements 0 0 - Physical Exam Head: Positive for: Atraumatic, Normocephalic Pupils: Positive for: PERRL Mouth: Positive for: Moist Mucous Membranes Respiratory/Chest: Positive for: Good Air Exchange. Negative for: Respiratory Distress Cardiovascular: Positive for: Regular Rate and Rhythm, Murmurs, Normal S1, S2 Abdomen: Positive for: Normal Bowel Sounds. Negative for: Peritoneal Signs Upper Extremity: Positive for: Normal Inspection Lower Extremity: Positive for: Normal Inspection - Medications Active Medications: Active Medications Generic Name Dose Route Start Last Admin Trade Name Freq PRN Reason Stop Dose Admin Acetaminophen 650 mg 02/06/17 17:27 02/07/17 15:42 Tylenol 325mg Tab PO 650 mg Q6 PRN Administration Pain, moderate (4-7) Amlodipine Besylate 5 mg 02/07/17 15:00 02/10/17 09:26 Norvasc PO 5 mg DAILY RA Administration Chlordiazepoxide 50 mg 02/10/17 14:00 02/10/17 14:14 Librium PO 50 mg Q8 RA Administration Ergocalciferol 1 cap 02/06/17 10:00 02/06/17 13:23 Drisdol 50,000 Intl Units Cap PO 1 cap Q7D RA Administration Folic Acid 1 mg 02/05/17 12:45 02/10/17 14:15 Folic Acid PO 1 mg DAILY RA Administration Gabapentin 300 mg 02/05/17 18:00 02/10/17 17:52 Neurontin PO 300 mg BID RA Administration Heparin Sodium (Porcine) 5,000 units 02/06/17 10:00 02/10/17 09:40 Heparin SC 5,000 units Q12 RA Administration Hydralazine HCl 10 mg 02/08/17 10:57 02/09/17 03:05 Apresoline IVP 10 mg Q6H PRN Administration hypertension Ketorolac Tromethamine 30 mg 02/09/17 14:31 02/10/17 16:32 Toradol IVP 30 mg Q6H PRN Administration Pain Labetalol HCl 300 mg 02/10/17 10:00 02/10/17 17:52 Normodyne PO 300 mg TID RA Administration Lorazepam 2 mg 02/10/17 09:14 Ativan IVP Q4H PRN Symptoms of alcohol withdrawl Multivitamins 1 tab 02/05/17 12:45 02/10/17 14:14 Hexavitamin PO 1 tab DAILY RA Administration Nicotine 1 patch 02/07/17 10:00 02/10/17 09:38 Nicoderm Cq TD 1 patch DAILY RA Administration Pantoprazole Sodium 20 mg 02/05/17 12:45 02/10/17 09:38 Protonix Ec Tab PO 20 mg DAILY RA Administration Thiamine HCl 100 mg 02/10/17 10:00 02/10/17 14:15 Vitamin B1 Tab PO 100 mg DAILY RA Administration Trazodone HCl 50 mg 02/05/17 12:35 02/10/17 17:52 Desyrel PO 50 mg HS PRN Administration Insomnia - Patient Studies Lab Studies: Lab Studies 02/10/17 02/10/17 Range/Units 06:00 06:00 WBC 5.3 (4.8-10.8) K/uL RBC 3.79 L (4.40-5.90) Mil/uL Hgb 13.1 (12.0-18.0) g/dL Hct 38.2 (35.0-51.0) % MCV 100.7 H (80.0-94.0) fL MCH 34.5 H (27.0-31.0) pg MCHC 34.3 (33.0-37.0) g/dL RDW 15.4 H (11.5-14.5) % Plt Count 146 (130-400) K/uL MPV 10.0 (7.2-11.7) fL Neut % (Auto) 57.6 (50.0-75.0) % Lymph % (Auto) 25.2 (20.0-40.0) % [place] % (Auto) 13.3 H (0.0-10.0) % Eos % (Auto) 3.3 (0.0-4.0) % Baso % (Auto) 0.6 (0.0-2.0) % Neut # 3.1 (1.8-7.0) K/uL Lymph # 1.3 (1.0-4.3) K/uL [place] # 0.7 (0.0-0.8) K/uL Eos # 0.2 (0.0-0.7) K/uL Baso # 0.0 (0.0-0.2) K/uL Sodium 136 (132-148) mmol/L Potassium 3.5 L (3.6-5.2) mmol/L Chloride 105 (98-107) mmol/L Carbon Dioxide 26 (22-30) mmol/L Anion Gap 8 L (10-20) BUN 10 (9-20) mg/dL Creatinine 0.6 L (0.8-1.5) mg/dL Est GFR ( Amer) > 60 Est GFR (Non-Af Amer) > 60 Random Glucose 104 (75-110) mg/dL Calcium 8.5 L (8.6-10.4) mg/dl Total Bilirubin 1.6 H (0.2-1.3) mg/dL AST 123 H (17-59) U/L ALT 75 H (21-72) U/L Alkaline Phosphatase 122 (38-126) U/L Total Protein 7.8 (6.3-8.3) g/dL Albumin 3.7 (3.5-5.0) g/dL Globulin 4.1 H (2.2-3.9) gm/dL Albumin/Globulin Ratio 0.9 L (1.0-2.1) Laboratory Results - last 24 hr 02/10/17 02/10/17 06:00 06:00 WBC 5.3 RBC 3.79 L Hgb 13.1 Hct 38.2 MCV 100.7 H MCH 34.5 H MCHC 34.3 RDW 15.4 H Plt Count 146 MPV 10.0 Neut % (Auto) 57.6 Lymph % (Auto) 25.2 [place] % (Auto) 13.3 H Eos % (Auto) 3.3 Baso % (Auto) 0.6 Neut # 3.1 Lymph # 1.3 [place] # 0.7 Eos # 0.2 Baso # 0.0 Sodium 136 Potassium 3.5 L Chloride 105 Carbon Dioxide 26 Anion Gap 8 L BUN 10 Creatinine 0.6 L Est GFR ( Amer) > 60 Est GFR (Non-Af Amer) > 60 Random Glucose 104 Calcium 8.5 L Total Bilirubin 1.6 H AST 123 H ALT 75 H Alkaline Phosphatase 122 Total Protein 7.8 Albumin 3.7 Globulin 4.1 H Albumin/Globulin Ratio 0.9 L Critical Care Progress Note - Nutrition Nutrition: Nutrition Category Date Time Status Heart Healthy Diet [DIET] Diets 02/10/17 Dinner Active Assessment/Plan - Assessment and Plan (Free Text) Plan: DT: off precedex, continue lirbium taper gently -HTN: continue labetalol -tolerating oral diet -Patient remains hemodynamically stable - Date & Time Date: 02/10/17 Time: 21:37
[2017-02-11 06:35] LABS: BASO # 0.1 K/uL (0.0-0.2); EOS # 0.1 K/uL (0.0-0.7); EOS % 1.1 % (0.0-4.0); HEMATOCRIT 36.8 % (35.0-51.0); LYMPH # 1.6 K/uL (1.0-4.3); LYMPH % 28.6 % (20.0-40.0); MEAN CELL VOLUME 102.3 fL (80.0-94.0); MEAN CORPUSCULAR HEMOGLOBIN 34.8 pg (27.0-31.0); MEAN PLATELET VOLUME 10.3 fL (7.2-11.7); MONO % 17.4 % (0.0-10.0); NRBC % 0.1 % (0.0-2.0); RED CELL DISTRIBUTION WIDTH 15.4 % (11.5-14.5); WHITE BLOOD COUNT 5.5 K/uL (4.8-10.8)
[2017-02-11 07:05] LABS: ALB/GLOB RATIO 1.2 (1.0-2.1); ALKALINE PHOSPHATASE 134 U/L (38-126); ALT/SGPT 62 U/L (21-72); AST/SGOT 78 U/L (17-59); BILIRUBIN,TOTAL 1.4 mg/dL (0.2-1.3); BLOOD UREA NITROGEN 13 mg/dL (9-20); CALCIUM 8.8 mg/dl (8.6-10.4); CARBON DIOXIDE 24 mmol/L (22-30); CHLORIDE 108 mmol/L (98-107); GFR AFRICAN-AMERICAN > 60; GLUCOSE,RANDOM 110 mg/dL (75-110); POTASSIUM 3.5 mmol/L (3.6-5.2); SODIUM 139 mmol/L (132-148); TOTAL PROTEIN 6.7 g/dL (6.3-8.3)
[2017-02-11] MEDS ORDERED: Potassium Chloride 20 mEq/15 ml LIQ UD PO ONE (08:58)
--- NOTE | 2017-02-11 09:00 | CP.CCUPN ---
CCU Subjective - Physician Review Events Since Last Encounter (Free Text): 02/11/17 09:00 37-year-old male with a history of alcoholism, hypertension admitted to the hospital with delirium. Patient is markedly improved in all doing well. Eating well. No distress. Likely stable. No IV fluid running, patient is not in any distress Vital signs reviewed No neck vein distention noted Chest good air entry bilaterally, no wheezing or rales noted CVS regular heart sound, no murmur noted Abdomen soft, nontender. Extremities no pedal edema [employer] alert awake oriented -3, no functional neurological deficit Clinically labs today. Condition stable. He can be transferred to regular medical floor. Assessment and recommendation: 37-year-old male with history of hypertension, alcoholism. Alcoholic delirium. Patient will be transferred to the regular medical floor. Stable clinically. Patient needs a psychiatric follow-up and will follow-up the patient if needed CCU Objective - Vital Signs / Intake & Output Vital Signs (Last 4 hours): Vital Signs Temp Pulse Resp BP Pulse Ox 02/11/17 08:07 90 17 155/93 H 94 L 02/11/17 08:00 98.8 F 94 L 02/11/17 07:07 91 H 31 H 140/82 92 L 02/11/17 06:07 127/94 H 02/11/17 06:00 91 H 26 H 92 L 02/11/17 05:47 141/86 Intake and Output (Last 8hrs): Intake & Output 02/10/17 02/11/17 02/11/17 22:59 06:59 14:59 Intake Total 350 50 0 Output Total 460 200 250 Balance -110 -150 -250 Weight 242 lb 3.2 oz Intake: Intake, IV Amount 0 Left Forearm Y-site 0 Oral 350 50 0 Output: Urine 460 200 250 Condom 460 200 Urine, Voided 250 Emesis 0 0 0 Other: # Voids Condom 1 Urine, Voided 1 # Bowel Movements 0 0 0 - Physical Exam Head: Positive for: Atraumatic, Normocephalic Pupils: Positive for: PERRL Mouth: Positive for: Moist Mucous Membranes Respiratory/Chest: Positive for: Good Air Exchange. Negative for: Respiratory Distress Cardiovascular: Positive for: Regular Rate and Rhythm, Murmurs, Normal S1, S2 Abdomen: Positive for: Normal Bowel Sounds. Negative for: Peritoneal Signs Upper Extremity: Positive for: Normal Inspection Lower Extremity: Positive for: Normal Inspection - Medications Active Medications: Active Medications Generic Name Dose Route Start Last Admin Trade Name Freq PRN Reason Stop Dose Admin Acetaminophen 650 mg 02/06/17 17:27 02/10/17 21:45 Tylenol 325mg Tab PO 650 mg Q6 PRN Administration Pain, moderate (4-7) Amlodipine Besylate 5 mg 02/07/17 15:00 02/10/17 09:26 Norvasc PO 5 mg DAILY RA Administration Chlordiazepoxide 50 mg 02/10/17 14:00 02/11/17 05:54 Librium PO 50 mg Q8 RA Administration Ergocalciferol 1 cap 02/06/17 10:00 02/06/17 13:23 Drisdol 50,000 Intl Units Cap PO 1 cap Q7D RA Administration Folic Acid 1 mg 02/05/17 12:45 02/10/17 14:15 Folic Acid PO 1 mg DAILY RA Administration Gabapentin 300 mg 02/05/17 18:00 02/10/17 17:52 Neurontin PO 300 mg BID RA Administration Heparin Sodium (Porcine) 5,000 units 02/06/17 10:00 02/10/17 21:44 Heparin SC 5,000 units Q12 RA Administration Hydralazine HCl 10 mg 02/08/17 10:57 02/09/17 03:05 Apresoline IVP 10 mg Q6H PRN Administration hypertension Ketorolac Tromethamine 30 mg 02/09/17 14:31 02/11/17 07:34 Toradol IVP 30 mg Q6H PRN Administration Pain Labetalol HCl 300 mg 02/10/17 10:00 02/10/17 17:52 Normodyne PO 300 mg TID RA Administration Lorazepam 2 mg 02/10/17 09:14 Ativan IVP Q4H PRN Symptoms of alcohol withdrawl Multivitamins 1 tab 02/05/17 12:45 02/10/17 14:14 Hexavitamin PO 1 tab DAILY RA Administration Nicotine 1 patch 02/07/17 10:00 02/10/17 09:38 Nicoderm Cq TD 1 patch DAILY RA Administration Pantoprazole Sodium 20 mg 02/05/17 12:45 02/10/17 09:38 Protonix Ec Tab PO 20 mg DAILY RA Administration Potassium Chloride 40 meq 02/11/17 08:58 Potassium Chloride Oral Soln PO 02/11/17 08:59 ONCE ONE Thiamine HCl 100 mg 02/10/17 10:00 02/10/17 14:15 Vitamin B1 Tab PO 100 mg DAILY RA Administration Trazodone HCl 50 mg 02/05/17 12:35 02/10/17 17:52 Desyrel PO 50 mg HS PRN Administration Insomnia - Patient Studies Lab Studies: Lab Studies 02/11/17 02/11/17 Range/Units 06:28 06:28 WBC 5.5 (4.8-10.8) K/uL RBC 3.60 L (4.40-5.90) Mil/uL Hgb 12.5 (12.0-18.0) g/dL Hct 36.8 (35.0-51.0) % MCV 102.3 H (80.0-94.0) fL MCH 34.8 H (27.0-31.0) pg MCHC 34.0 (33.0-37.0) g/dL RDW 15.4 H (11.5-14.5) % Plt Count 161 (130-400) K/uL MPV 10.3 (7.2-11.7) fL Neut % (Auto) 51.9 (50.0-75.0) % Lymph % (Auto) 28.6 (20.0-40.0) % [place] % (Auto) 17.4 H (0.0-10.0) % Eos % (Auto) 1.1 (0.0-4.0) % Baso % (Auto) 1.0 (0.0-2.0) % Neut # 2.8 (1.8-7.0) K/uL Lymph # 1.6 (1.0-4.3) K/uL [place] # 1.0 H (0.0-0.8) K/uL Eos # 0.1 (0.0-0.7) K/uL Baso # 0.1 (0.0-0.2) K/uL Sodium 139 (132-148) mmol/L Potassium 3.5 L (3.6-5.2) mmol/L Chloride 108 H (98-107) mmol/L Carbon Dioxide 24 (22-30) mmol/L Anion Gap 11 (10-20) BUN 13 (9-20) mg/dL Creatinine 0.8 (0.8-1.5) mg/dL Est GFR ( Amer) > 60 Est GFR (Non-Af Amer) > 60 Random Glucose 110 (75-110) mg/dL Calcium 8.8 (8.6-10.4) mg/dl Total Bilirubin 1.4 H (0.2-1.3) mg/dL AST 78 H D (17-59) U/L ALT 62 (21-72) U/L Alkaline Phosphatase 134 H (38-126) U/L Total Protein 6.7 (6.3-8.3) g/dL Albumin 3.7 (3.5-5.0) g/dL Globulin 3.0 (2.2-3.9) gm/dL Albumin/Globulin Ratio 1.2 (1.0-2.1) Laboratory Results - last 24 hr 02/11/17 02/11/17 06:28 06:28 WBC 5.5 RBC 3.60 L Hgb 12.5 Hct 36.8 MCV 102.3 H MCH 34.8 H MCHC 34.0 RDW 15.4 H Plt Count 161 MPV 10.3 Neut % (Auto) 51.9 Lymph % (Auto) 28.6 [place] % (Auto) 17.4 H Eos % (Auto) 1.1 Baso % (Auto) 1.0 Neut # 2.8 Lymph # 1.6 [place] # 1.0 H Eos # 0.1 Baso # 0.1 Sodium 139 Potassium 3.5 L Chloride 108 H Carbon Dioxide 24 Anion Gap 11 BUN 13 Creatinine 0.8 Est GFR ( Amer) > 60 Est GFR (Non-Af Amer) > 60 Random Glucose 110 Calcium 8.8 Total Bilirubin 1.4 H AST 78 H D ALT 62 Alkaline Phosphatase 134 H Total Protein 6.7 Albumin 3.7 Globulin 3.0 Albumin/Globulin Ratio 1.2 Critical Care Progress Note - Nutrition Nutrition: Nutrition Category Date Time Status Heart Healthy Diet [DIET] Diets 02/10/17 Dinner Active
[2017-02-11 09:02] LABS: MAGNESIUM 1.7 mg/dL (1.6-2.3); PHOSPHOROUS 5.9 mg/dL (2.5-4.5)
[2017-02-11] MEDS: Labetalol Hydrochloride 300 mg Tab PO SCH ×3 (09:11→17:08)
[2017-02-11] MEDS: Pantoprazole 20 mg EC Tab PO SCH (09:11)
[2017-02-11] MEDS: Multiple Vitamins Tab PO SCH (09:11)
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
[2017-02-11] MEDS ORDERED: Tramadol 25 mg PO ONE (20:45)
[2017-02-12 07:52] LABS: BASO % 0.8 % (0.0-2.0); EOS # 0.1 K/uL (0.0-0.7); EOS % 2.2 % (0.0-4.0); HEMATOCRIT 36.2 % (35.0-51.0); LYMPH # 1.9 K/uL (1.0-4.3); LYMPH % 32.4 % (20.0-40.0); MEAN CELL VOLUME 101.2 fL (80.0-94.0); MEAN CORPUSCULAR HEMOGLOBIN 34.2 pg (27.0-31.0); MEAN CORPUSCULAR HGB CONC 33.8 g/dL (33.0-37.0); MEAN PLATELET VOLUME 9.7 fL (7.2-11.7); MONO % 17.6 % (0.0-10.0); RED CELL DISTRIBUTION WIDTH 15.2 % (11.5-14.5); WHITE BLOOD COUNT 5.7 K/uL (4.8-10.8)
[2017-02-12 08:24] LABS: ALB/GLOB RATIO 1.1 (1.0-2.1); ALKALINE PHOSPHATASE 150 U/L (38-126); ALT/SGPT 52 U/L (21-72); AST/SGOT 68 U/L (17-59); BILIRUBIN,TOTAL 1.2 mg/dL (0.2-1.3); BLOOD UREA NITROGEN 10 mg/dL (9-20); CALCIUM 8.8 mg/dl (8.6-10.4); CARBON DIOXIDE 25 mmol/L (22-30); CHLORIDE 108 mmol/L (98-107); GFR AFRICAN-AMERICAN > 60; GLUCOSE,RANDOM 115 mg/dL (75-110); POTASSIUM 3.9 mmol/L (3.6-5.2); SODIUM 141 mmol/L (132-148); TOTAL PROTEIN 6.9 g/dL (6.3-8.3)
[2017-02-12] MEDS: Multiple Vitamins Tab PO SCH (09:53)
[2017-02-12] MEDS: Pantoprazole 20 mg EC Tab PO SCH (09:54)
[2017-02-12] MEDS: Labetalol Hydrochloride 300 mg Tab PO SCH ×3 (09:54→17:45)
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
[2017-02-12] MEDS: Tramadol 25 mg PO PRN ×2 (10:38→20:03)
--- NOTE | 2017-02-12 14:07 | PCM.PYCHPN ---
Psychiatric Progress Note - Psychiatric Progress Note Patient seen today, length of contact: 15 min Patient Chief Complaint: "better" Problems Identified/Issues Discussed: The pt is seen, chart reviewed, case discussed with staff. He is doing much better and looks like he is oriented and calm her. Still has some withdrawal symptoms but on Librium taper. Support and psychoeducation given He is waiting for a biopsy and after that he may be transferred to detox. Please contact speech writer for bed availability Medication Change: Yes (detox changes daily) Medical Record Reviewed: Yes Mental Status Examination - Cognitive Function Orientation: Person, Place, Situation, Time Memory: Intact Attention: Poor Concentration: Poor Association: Loose Fund of Knowledge: WNL - Mood Mood: Anxious - Affect Affect: Constricted - Speech Speech: Slurred - Formal Thought Process Formal Thought Process: No Impairment - Suicidal Ideation Suicidal Ideation: No - Homicidal Ideation Homicidal Ideation: No Goal/Treatment Plan - Goal/Treatment Plan Need for Continued Stay: Discharge may exacerbated symptoms, Severe functional impairment, Other Progress Toward Problem(s) and Goals/Treatment Plan: Librium detox As needed medications Support and psychoeducation Can be transferred when medically cleared - please contact speech writer first
[2017-02-12] MEDS ORDERED: Tramadol 25 mg PO ONE (20:30)
[2017-02-12] MEDS ORDERED: guaiFENesin-Codeine 100-10mg/5ml Syrup (10ml) UD PO PRN (23:14)
[2017-02-13] MEDS: Tramadol 25 mg PO PRN ×3 (03:53→20:27)
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
[2017-02-13] MEDS: Multiple Vitamins Tab PO SCH (11:22)
[2017-02-13] MEDS: Labetalol Hydrochloride 300 mg Tab PO SCH ×3 (11:23→18:53)
[2017-02-13] MEDS: Pantoprazole 20 mg EC Tab PO SCH (11:32)
[2017-02-14] MEDS: Tramadol 25 mg PO PRN ×2 (01:53→13:59)
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
[2017-02-14 08:13] LABS: BASO # 0.1 K/uL (0.0-0.2); BASO % 0.8 % (0.0-2.0); EOS # 0.2 K/uL (0.0-0.7); EOS % 3.3 % (0.0-4.0); HEMATOCRIT 37.7 % (35.0-51.0); LYMPH # 1.9 K/uL (1.0-4.3); LYMPH % 30.1 % (20.0-40.0); MEAN CELL VOLUME 100.5 fL (80.0-94.0); MEAN CORPUSCULAR HEMOGLOBIN 34.7 pg (27.0-31.0); MEAN CORPUSCULAR HGB CONC 34.5 g/dL (33.0-37.0); MEAN PLATELET VOLUME 9.4 fL (7.2-11.7); MONO # 0.8 K/uL (0.0-0.8); MONO % 12.7 % (0.0-10.0); RED CELL DISTRIBUTION WIDTH 14.6 % (11.5-14.5); WHITE BLOOD COUNT 6.3 K/uL (4.8-10.8)
[2017-02-14 08:40] LABS: INR 1.1
[2017-02-14 08:44] LABS: ALB/GLOB RATIO 0.8 (1.0-2.1); ALKALINE PHOSPHATASE 163 U/L (38-126); ALT/SGPT 44 U/L (21-72); AST/SGOT 57 U/L (17-59); BILIRUBIN,TOTAL 1.1 mg/dL (0.2-1.3); BLOOD UREA NITROGEN 15 mg/dL (9-20); CALCIUM 9.3 mg/dl (8.6-10.4); CARBON DIOXIDE 26 mmol/L (22-30); CHLORIDE 101 mmol/L (98-107); GFR AFRICAN-AMERICAN > 60; GLUCOSE,RANDOM 92 mg/dL (75-110); POTASSIUM 4.1 mmol/L (3.6-5.2); SODIUM 135 mmol/L (132-148); TOTAL PROTEIN 8.5 g/dL (6.3-8.3)
[2017-02-14] MEDS ORDERED: Oxymetazoline 0.05% Nasal Spray (30 ml) NS ONE (09:50)
[2017-02-14] MEDS: Pantoprazole 20 mg EC Tab PO SCH (09:59)
[2017-02-14] MEDS: Multiple Vitamins Tab PO SCH (09:59)
[2017-02-14] MEDS: Labetalol Hydrochloride 300 mg Tab PO SCH ×4 (09:59→22:17)
[2017-02-14] MEDS ORDERED: Midazolam 2 MG/2 ML VIAL ONE (10:11)
[2017-02-14] MEDS ORDERED: Propofol 10 mg/ml Inj (20 ML) ONE ×2 (10:11)
[2017-02-14] MEDS ORDERED: ceFAZolin IV 2 gm in Dextrose 2 GM/50 ML BAG IVPB ONE (10:23)
[2017-02-14] MEDS ORDERED: Succinylcholine Chloride 20 mg/ml Syr (5 ml) IV ONE (10:35)
[2017-02-14] MEDS ORDERED: Lidocaine Hydrochloride 5 ML INJ ONE (10:48)
[2017-02-14] MEDS ORDERED: HYDROmorphone 0.5 mg/0.5 ml ISec IVP PRN (10:54)
--- NOTE | 2017-02-14 11:11 | OP ---
PROCEDURE DATE: 02/14/2017 PREOPERATIVE DIAGNOSIS: Left nasal mass. POSTOPERATIVE DIAGNOSIS: Left nasal mass. PROCEDURE: Left nasal mass biopsies. SIGNIFICANT FINDINGS: Left nasal mass. DESCRIPTION OF PROCEDURE: The patient was brought into the room, placed in a supine position. Anesthesia was initiated through an ET tube. Adrenaline-soaked pledgets were inserted into the left nasal cavity, remained there for at least 5 minutes and removed. The patient was draped in the usual manner. A 0-degree scope was inserted into the left nasal cavity. A mass was noted in the middle meatus and multiple biopsies were taken. Bleeding was controlled using adrenaline-soaked pledgets. The pledgets were removed. The scope was removed. The patient was taken off the anesthesia and taken to the recovery room in stable manner. Desean Plunkett MD MTDD
[2017-02-14] MEDS ORDERED: Lidocaine 1%/Epinephrine 1:100000 30 ml vial IJ ONE (11:30)
[2017-02-15 00:21] VITALS: RESP 20
[2017-02-15] MEDS: Tramadol 25 mg PO PRN (04:14)
[2017-02-15 07:46] VITALS: BP 110/61; PULSE 96; TEMP 98.2; O2SAT 97
[2017-02-15 08:44] LABS: BASO # 0.1 K/uL (0.0-0.2); BASO % 1.2 % (0.0-2.0); EOS # 0.2 K/uL (0.0-0.7); EOS % 3.1 % (0.0-4.0); LYMPH # 2.1 K/uL (1.0-4.3); LYMPH % 36.3 % (20.0-40.0); MEAN CELL VOLUME 101.1 fL (80.0-94.0); MEAN CORPUSCULAR HEMOGLOBIN 35.2 pg (27.0-31.0); MEAN CORPUSCULAR HGB CONC 34.8 g/dL (33.0-37.0); MEAN PLATELET VOLUME 9.3 fL (7.2-11.7); MONO # 0.5 K/uL (0.0-0.8); MONO % 8.8 % (0.0-10.0); NRBC % 0.1 % (0.0-2.0); RED CELL DISTRIBUTION WIDTH 14.8 % (11.5-14.5); WHITE BLOOD COUNT 5.9 K/uL (4.8-10.8)
[2017-02-15 09:09] LABS: ALB/GLOB RATIO 1.2 (1.0-2.1); ALKALINE PHOSPHATASE 189 U/L (38-126); ALT/SGPT 29 U/L (21-72); AST/SGOT 59 U/L (17-59); BILIRUBIN,TOTAL 1.4 mg/dL (0.2-1.3); BLOOD UREA NITROGEN 15 mg/dL (9-20); CALCIUM 9.3 mg/dl (8.6-10.4); CARBON DIOXIDE 27 mmol/L (22-30); CHLORIDE 99 mmol/L (98-107); GFR AFRICAN-AMERICAN > 60; GLUCOSE,RANDOM 105 mg/dL (75-110); POTASSIUM 4.1 mmol/L (3.6-5.2); SODIUM 136 mmol/L (132-148); TOTAL PROTEIN 7.8 g/dL (6.3-8.3)
[2017-02-15] MEDS: Pantoprazole 20 mg EC Tab PO SCH (10:34)
[2017-02-15] MEDS: Multiple Vitamins Tab PO SCH (10:34)
[2017-02-15] MEDS: Labetalol Hydrochloride 300 mg Tab PO SCH (10:35)
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
== END 2017-02-15 14:52 | disposition home or self-care (01) | DRG 895 ==
LOC: C.ER 05:41 → C.7D 11:04 → C.9I 23:58 → C.3T 02-11 20:05
PROVIDERS: ADMIT Internal Medicine; ATTEND Internal Medicine
PROC: HZ2ZZZZ Detoxification Services for Substance Abuse Treatment (ICD-10-PCS; principal; 2017-02-05)
PROC: HZ52ZZZ Individual Psychotherapy for Substance Abuse Treatment, Cognitive-Behavioral (ICD-10-PCS; 2017-02-05)
PROC: HZ42ZZZ Group Counseling for Substance Abuse Treatment, Cognitive-Behavioral (ICD-10-PCS; 2017-02-05)
PROC: HZ59ZZZ Individual Psychotherapy for Substance Abuse Treatment, Supportive (ICD-10-PCS; 2017-02-05)
PROC: HZ56ZZZ Individual Psychotherapy for Substance Abuse Treatment, Psychoeducation (ICD-10-PCS; 2017-02-05)
PROC: HZ46ZZZ Group Counseling for Substance Abuse Treatment, Psychoeducation (ICD-10-PCS; 2017-02-05)
PROC: 09JK8ZZ Inspection of Nasal Mucosa and Soft Tissue, Via Natural or Artificial Opening Endoscopic (ICD-10-PCS; 2017-02-06)
PROC: 09BK4ZX Excision of Nasal Mucosa and Soft Tissue, Percutaneous Endoscopic Approach, Diagnostic (ICD-10-PCS; 2017-02-14)
DX: F10.230 Alcohol dependence with withdrawal, uncomplicated (principal); G47.30 Sleep apnea, unspecified; K92.1 Melena; I10 Essential (primary) hypertension; Y90.8 Blood alcohol level of 240 mg/100 ml or more; Z80.1 Family history of malignant neoplasm of trachea, bronchus and lung; J32.0 Chronic maxillary sinusitis; J33.9 Nasal polyp, unspecified; J34.2 Deviated nasal septum

== ENCOUNTER 2017-10-17 16:28 | Inpatient (IN) | payer BC ==
[2017-10-17 16:29] VITALS: BMI 31.6
[2017-10-17] MEDS ORDERED: Sodium Chloride 0.9% 1,000 ML IV ONE (16:48)
[2017-10-17] MEDS ORDERED: Sodium Chloride 0.9% 1,000 ML ONE (17:00)
--- NOTE | 2017-10-17 17:08 | C.PDOC ---
History Of Present Illness 37 year old male presents to the ER with a complaint of abdominal pain associated with nausea and vomiting. Patient has a Hx of pancreatitis secondary to ETOH use, he has been ETOH free but began drinking again 2 weeks ago. Denies diarrhea, chest pain, or SOB. Time Seen by Provider: 10/17/17 16:41 Chief Complaint (Nursing): Abdominal Pain History Per: Patient History/Exam Limitations: no limitations Onset/Duration Of Symptoms: Days Current Symptoms Are (Timing): Still Present Location Of Pain/Discomfort: Epigastric Radiation Of Pain To:: None Quality Of Discomfort: Unable To Describe Associated Symptoms: Nausea, Vomiting. denies: Diarrhea, Chest Pain, Other (SOB ) Exacerbating Factors: None Alleviating Factors: None Recent travel outside of the [place]: No Past Medical History Reviewed: Historical Data, Nursing Documentation, Vital Signs Vital Signs: Last Vital Signs Temp 98.9 F 10/17/17 16:32 Pulse 136 H 10/17/17 16:32 Resp 22 10/17/17 16:32 BP 157/114 H 10/17/17 16:32 Pulse Ox 93 L 10/17/17 18:31 - Medical History PMH: HTN, Pancreatitis, Seizures (last March 2015) Denies: Diabetes, Hepatitis, HIV, Sexually Transmitted Disease - [facility] Procedures (02/05/17) DETOXIFICATION SERVICES FOR SUBSTANCE ABUSE TREATMENT (02/05/17) EXCISION OF NOSE, PERCUTANEOUS ENDOSCOPIC APPROACH, DIAGN (02/05/17) GROUP PROCUREMENT REPRESENTATIVE FOR SUBSTANCE ABUSE TREATMENT, PSYCHOEDUCATION (02/05/17) GROUP PROCUREMENT REPRESENTATIVE FOR SUBSTANCE ABUSE, COGNITIVE BEHAVIORAL (02/05/17) INDIV PSYCHOTHERAPY FOR SUBSTANCE ABUSE TREATMENT, SUPPORT (02/05/17) INDIV PSYCHOTHERAPY FOR SUBSTANCE ABUSE, COGNITIV BEHAVIORAL (02/05/17) INDIV PSYCHOTHERAPY FOR SUBSTANCE ABUSE, PSYCHOEDUCATION (02/05/17) Family History: States: Unknown Family Hx - Social History Hx Alcohol Use: Yes Hx Substance Use: No - Immunization History Hx Tetanus Toxoid Vaccination: No Hx Influenza Vaccination: No Hx Pneumococcal Vaccination: No Review Of Systems Except As Marked, All Systems Reviewed And Found Negative. Cardiovascular: Negative for: Chest Pain, Palpitations Respiratory: Negative for: Cough, Shortness of Breath Gastrointestinal: Positive for: Nausea, Vomiting, Abdominal Pain. Negative for : Diarrhea Physical Exam - Physical Exam Appears: Non-toxic Skin: Normal Color, Warm, Dry Head: Atraumatic, Normacephalic Eye(s): bilateral: Normal Inspection Oral Mucosa: Moist Neck: Normal, Supple Chest: Symmetrical, No Tenderness Cardiovascular: Rhythm Regular Respiratory: Normal Breath Sounds, No Rales, No Rhonchi, No Wheezing Gastrointestinal/Abdominal: Soft, Tenderness (Epigastric), No Guarding, No Rebound Back: No CVA Tenderness Neurological/Psych: Oriented x3, Normal Speech ED Course And Treatment - Laboratory Results Result Diagrams: 10/17/17 17:15 10/17/17 17:15 O2 Sat by Pulse Oximetry: 93 (Room air) Pulse Ox Interpretation: Normal Medical Decision Making Medical Decision Making: Plan: * EKG * Blood work * Obstructive series x-ray * Urinalysis * Protonix * IV fluids * Toradol * Zofran Spoke will Dr. Macario Ralph, will admit to med/surg for pancreatitis. Disposition Discussed With : Fatoumata Ewing Doctor Will See Patient In The: Hospital Counseled Patient/Family Regarding: Studies Performed, Diagnosis - Disposition Disposition: HOSPITALIZED Disposition Time: 18:31 Condition: FAIR Forms: [facility] (Sudanese) - Clinical Impression Clinical Impression: Pancreatitis - Scribe Statement The provider has reviewed the documentation as recorded by the Scribe Augusto Wren All medical record entries made by the Scribe were at my direction and personally dictated by me. I have reviewed the chart and agree that the record accurately reflects my personal performance of the history, physical exam, medical decision making, and the department course for this patient. I have also personally directed, reviewed, and agree with the discharge instructions and disposition.
--- NOTE | 2017-10-17 17:28 | RAD ---
Date of service: 10/17/2017 PROCEDURE: Radiographs of the chest and abdomen (obstructive series) HISTORY: abd pain COMPARISON: Chest x-ray performed 02/05/17 TECHNIQUE: AP radiograph of the chest, with upright and supine radiographs of the abdomen. FINDINGS: CHEST: Heart size appears within normal limits. No focal consolidation, significant pleural effusion, or definite pneumothorax identified.Please note that chest x-ray has limited sensitivity for the detection of pulmonary masses. ABDOMEN AND PELVIS: Air-filled loops of small bowel noted in the mid abdomen. Mild constipation. Question presence of air within the colon. No definite free air. No acute osseous abnormality is detected. IMPRESSION: Air-filled loops of small bowel within the mid abdomen with questionable presence of air within the colon. Correlate clinically to exclude possibility of obstruction. Mild constipation.
[2017-10-17 17:37] LABS: ALB/GLOB RATIO 0.4 (1.0-2.1); ALBUMIN 2.7 g/dL (3.5-5.0); ALT/SGPT 40 U/L (21-72); AST/SGOT 36 U/L (17-59); BLOOD UREA NITROGEN 9 mg/dL (9-20); CALCIUM 8.5 mg/dl (8.6-10.4); GFR NON-AFRICAN AMERICAN > 60; LIPASE 654 U/L (23-300)
[2017-10-17 17:57] LABS: BASO % 0.3 % (0.0-2.0); HEMOGLOBIN 16.3 g/dL (12.0-18.0); LYMPH # 1.1 K/uL (1.0-4.3); LYMPH % 11.3 % (20.0-40.0); MEAN CELL VOLUME 86.8 fL (80.0-94.0); MEAN CORPUSCULAR HEMOGLOBIN 29.5 pg (27.0-31.0); MEAN PLATELET VOLUME 8.7 fL (7.2-11.7); MONO # 0.6 K/uL (0.0-0.8); MONO % 5.7 % (0.0-10.0); NEUT # 8.2 K/uL (1.8-7.0); NEUT % 82.7 % (50.0-75.0); NRBC % 0.1 % (0.0-2.0); RBC 5.51 Mil/uL (4.40-5.90); RED CELL DISTRIBUTION WIDTH 15.6 % (11.5-14.5); WHITE BLOOD COUNT 9.9 K/uL (4.8-10.8)
[2017-10-17 18:18] LABS: VENOUS BLOOD GAS BASE EXCESS -5.7 mmol/L (0.0-2.0); VENOUS BLOOD GAS PCO2 31 mmHg (40-60); VENOUS BLOOD GAS PO2 48 mm/Hg (30-55); VENOUS BLOOD PH 7.38 (7.32-7.43)
[2017-10-17] MEDS ORDERED: Dextrose 5%/0.45% NS 1,000 ML IV SCH (18:45)
[2017-10-17] MEDS: Dextrose 5%/0.45% NS 1,000 ML IV SCH (18:51)
[2017-10-17 21:25] LABS: SQUAMOUS EPITHIAL 4 /hpf (0-5); URINE BACTERIA OCC (<OCC); URINE BILIRUBIN NEGATIVE (NEGATIVE); URINE BLOOD 2+ (NEGATIVE); URINE CLARITY Hazy (Clear); URINE COLOR Amber (YELLOW); URINE GLUCOSE (UA) 1+ mg/dL (Normal); URINE LEUKOCYTE ESTERASE NEG Leu/uL (Negative); URINE PROTEIN 3+ mg/dL (NEGATIVE); URINE UROBILINOGEN NORMAL mg/dL (0.2-1.0)
[2017-10-17] MEDS ORDERED: Piperacillin/Tazobact 3.375 GM in Sodium Chloride 100 ML IVPB SCH (21:45)
[2017-10-17] MEDS: Piperacill/Tazo 3.375gm in Dex 3.375 GM/50 ML BAG IVPB SCH (22:07)
[2017-10-18] MEDS: Piperacill/Tazo 3.375gm in Dex 3.375 GM/50 ML BAG IVPB SCH ×4 (03:04→21:00)
[2017-10-18] MEDS: Dextrose 5%/0.45% NS 1,000 ML IV SCH ×3 (03:06→18:45)
--- NOTE | 2017-10-18 08:08 | CP.PCM.PN ---
Subjective - Date & Time of Evaluation Date of Evaluation: 10/18/17 Time of Evaluation: 08:05 - Subjective Subjective: HPI: Patient is a 37M with PMH alcoholism and poorly controlled HTN who is here for abdominal pain. Of note patient was admitted in January 2017 for alcohol detox, uncontrolled HTN. He states that he has abstained from alcohol consumption since but two weeks ago, he reintroduced alcohol. Now, for the past 48hrs he has had abdominal pain, nausea, vomiting. He denies any hematochezia, hematemesis. PMD: Unknown PMH: alcoholism, untreated HTN, nasal mass Meds: Amlodipine 10mg by mouth once a day Chlordiazepoxide 50mg. Day #1: 1 tablet in the morning, 1 tablet in the evening. Day #2: 1 tablet in the evening. 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 Objective - Vital Signs/Intake and Output Vital Signs (last 24 hours): Temp Pulse Resp BP Pulse Ox 99.1 F 120 H 21 170/115 H 97 10/18/17 07:52 10/18/17 07:52 10/18/17 07:52 10/18/17 07:52 10/18/17 07:52 Intake and Output: 10/18/17 10/18/17 06:59 18:59 Intake Total 1000 Balance 1000 - Medications Medications: Current Medications Acetaminophen (Tylenol 325mg Tab) 650 mg PO Q6 PRN PRN Reason: Fever >100.4 F Last Admin: 10/17/17 22:02 Dose: 650 mg Amlodipine Besylate (Norvasc) 5 mg PO DAILY RA Chlordiazepoxide (Librium) 50 mg PO Q6 [facility] Last Admin: 10/18/17 05:39 Dose: 50 mg Dextrose/Sodium Chloride (Dextrose 5%/0.45% Ns 1000 Ml) 1,000 mls @ 125 mls/hr IV .Q8H [facility] Last Admin: 10/18/17 03:06 Dose: 125 mls/hr Piperacillin Sod/Tazobactam Sod (Zosyn 3.375 Gm Iv Premix) 3.375 gm in 50 mls @ 100 mls/hr IVPB Q6H RA PRN Reason: Protocol Last Admin: 10/18/17 03:04 Dose: 100 mls/hr Lorazepam (Ativan) 2 mg IVP Q4H PRN PRN Reason: Anxiety Last Admin: 10/18/17 01:22 Dose: 2 mg Morphine Sulfate (Morphine) 2 mg IVP Q4 PRN PRN Reason: Pain, severe (8-10) Last Admin: 10/18/17 04:34 Dose: 2 mg Pantoprazole Sodium (Protonix Inj) 40 mg IVP DAILY RA Pneumococcal Polyvalent Vaccine (Pneumovax 23 Vaccine) 0.5 ml IM .ONCE ONE Stop: 10/19/17 10:01 - Labs Labs: 10/17/17 17:15 10/17/17 17:15 - Constitutional Appears: No Acute Distress - Head Exam Head Exam: ATRAUMATIC, NORMOCEPHALIC - Eye Exam Eye Exam: EOMI - ENT Exam ENT Exam: Mucous Membranes Moist - Respiratory Exam Respiratory Exam: Clear to Ausculation Bilateral, NORMAL BREATHING PATTERN - Cardiovascular Exam Cardiovascular Exam: REGULAR RHYTHM, +S1, +S2 - GI/Abdominal Exam GI & Abdominal Exam: Soft, Tenderness (epigastric) - Neurological Exam Neurological Exam: Alert, Awake, Oriented x3 - Psychiatric Exam Psychiatric exam: Normal Affect, Normal Mood - Skin Skin Exam: Dry, Warm Assessment and Plan - Assessment and Plan (Free Text) Plan: Pancreatitis in the setting of Alcohol Abuse Librium 50mg PO Q6hrs Ativan 2mg IVP q4hrs prn Morphine 2mg IVP q4hrs D5 1/2 NS @ 125mL/hr Zosyn 3.375 q6hrs Lipase 654 on admission Obsructive series inconclusive NPO HTN- poorly controlled Norvasc 5mg PO QD- consider increase to 10mg/addition of second agent with continued high readings PPX Protonix 40mg IVP daily SCD NPO Case Discussed with Dr. Ewing [facility] as per Dr. Ewing
[2017-10-18] MEDS ORDERED: Nitroglycerin 2% Ointment Foilpak UD TOP ONE ×2 (16:00→19:00)
--- NOTE | 2017-10-19 02:40 | CARD ---
APPROVED REPORT Date of service: 10/17/2017 EKG Measurement Heart [id number] <Conclusion> Sinus tachycardia Left axis deviation Incomplete right bundle branch block Abnormal ECG
[2017-10-19] MEDS: Dextrose 5%/0.45% NS 1,000 ML IV SCH ×4 (04:06→21:05)
[2017-10-19] MEDS: Piperacill/Tazo 3.375gm in Dex 3.375 GM/50 ML BAG IVPB SCH ×4 (04:06→22:17)
--- NOTE | 2017-10-19 06:50 | HP ---
Copied To: Fatoumata Ewing MD Attending MD: Fatoumata Ewing MD HISTORY OF PRESENT ILLNESS: This is a 37-year-old male, admitted to the hospital with a chief complaint of right abdominal pain pancreatitis. PHYSICAL EXAMINATION: GENERAL: The patient awake, alert, oriented. VITAL SIGNS: Temperature 98, pulse 90. HEENT: Within normal limits. NECK: Supple. CHEST: Symmetrical. HEART: Regular. EXTREMITIES: No edema. IMPRESSION: The patient suffers from pancreatitis. Patient to get bed rest, n.p.o. IV fluids. Fatoumata Ewing MD
[2017-10-19 07:41] LABS: BASO # 0.1 K/uL (0.0-0.2); MONO # 0.5 K/uL (0.0-0.8); NEUT # 10.9 K/uL (1.8-7.0)
[2017-10-19 07:49] LABS: BASO % 0.5 % (0.0-2.0); EOS % 0.2 % (0.0-4.0); LYMPH # 1.6 K/uL (1.0-4.3); LYMPH % 12.4 % (20.0-40.0); MEAN CELL VOLUME 84.9 fL (80.0-94.0); MEAN CORPUSCULAR HEMOGLOBIN 30.1 pg (27.0-31.0); MEAN CORPUSCULAR HGB CONC 35.5 g/dL (33.0-37.0); MONO % 3.9 % (0.0-10.0); RBC 4.44 Mil/uL (4.40-5.90); RED CELL DISTRIBUTION WIDTH 15.1 % (11.5-14.5); WHITE BLOOD COUNT 13.2 K/uL (4.8-10.8)
[2017-10-19 07:55] LABS: ALB/GLOB RATIO 0.9 (1.0-2.1); ALBUMIN 2.9 g/dL (3.5-5.0); ALT/SGPT 18 U/L (21-72); AST/SGOT 30 U/L (17-59); BLOOD UREA NITROGEN 6 mg/dL (9-20); CALCIUM 7.8 mg/dl (8.6-10.4); GFR NON-AFRICAN AMERICAN > 60; HEMOGLOBIN 13.4 g/dL (12.0-18.0)
--- NOTE | 2017-10-19 08:41 | CP.PCM.PN ---
Subjective - Date & Time of Evaluation Date of Evaluation: 10/19/17 Time of Evaluation: 07:30 - Subjective Subjective: PGY3 Resident - Medicine Progress Note Patient seen and examined at bedside. No acute distress. No overnight events. Patient denies n/v, however is still very lethargic and reports persistent abdominal pain (morphine helps). He continues to feel shaky. 12-point review of systems is otherwise negative without any additional acute complaints. Objective - Vital Signs/Intake and Output Vital Signs (last 24 hours): Temp Pulse Resp BP Pulse Ox 99.4 F 109 H 20 122/69 97 10/19/17 05:50 10/19/17 05:50 10/19/17 05:50 10/19/17 05:50 10/19/17 05:50 Intake and Output: 10/19/17 10/19/17 06:59 18:59 Intake Total 2075 Output Total 1550 Balance 525 - Medications Medications: Current Medications Acetaminophen (Tylenol 325mg Tab) 650 mg PO Q6 PRN PRN Reason: Fever >100.4 F Last Admin: 10/19/17 00:16 Dose: 650 mg Amlodipine Besylate (Norvasc) 10 mg PO DAILY RA Chlordiazepoxide (Librium) 50 mg PO Q6 [facility] Last Admin: 10/19/17 05:47 Dose: 50 mg Dextrose/Sodium Chloride (Dextrose 5%/0.45% Ns 1000 Ml) 1,000 mls @ 125 mls/hr IV .Q8H [facility] Last Admin: 10/19/17 04:06 Dose: 125 mls/hr Piperacillin Sod/Tazobactam Sod (Zosyn 3.375 Gm Iv Premix) 3.375 gm in 50 mls @ 100 mls/hr IVPB Q6H RA PRN Reason: Protocol Last Admin: 10/19/17 04:06 Dose: 100 mls/hr Lorazepam (Ativan) 2 mg IVP Q4H PRN PRN Reason: Anxiety Last Admin: 10/18/17 01:22 Dose: 2 mg Morphine Sulfate (Morphine) 2 mg IVP Q4 PRN PRN Reason: Pain, severe (8-10) Last Admin: 10/19/17 04:09 Dose: 2 mg Nicotine (Nicoderm Cq) 1 patch TD DAILY [facility] Last Admin: 10/18/17 18:41 Dose: 1 patch Pantoprazole Sodium (Protonix Inj) 40 mg IVP DAILY RA Last Admin: 10/18/17 09:43 Dose: 40 mg Pneumococcal Polyvalent Vaccine (Pneumovax 23 Vaccine) 0.5 ml IM .ONCE ONE Stop: 10/19/17 10:01 - Labs Labs: 10/19/17 07:15 10/19/17 07:15 - Additional Findings Additional findings: - Constitutional Appears: No Acute Distress - Head Exam Head Exam: ATRAUMATIC, NORMOCEPHALIC - Eye Exam Eye Exam: EOMI - ENT Exam ENT Exam: Mucous Membranes Moist - Respiratory Exam Respiratory Exam: Clear to Ausculation Bilateral, NORMAL BREATHING PATTERN - Cardiovascular Exam Cardiovascular Exam: REGULAR RHYTHM, +S1, +S2 - GI/Abdominal Exam GI & Abdominal Exam: Soft, Tenderness (epigastric) - Neurological Exam Neurological Exam: Alert, Awake, Oriented x3 - Psychiatric Exam Psychiatric exam: Normal Affect, Normal Mood - Skin Skin Exam: Dry, Warm, Intact Assessment and Plan - Assessment and Plan (Free Text) Assessment: Pancreatitis in the setting of Alcohol Abuse 10/19: patient continues to be lethargic, shaky, with persistent abdominal pain responsive to morphine. Continue present management. Librium 50mg PO Q6hrs Ativan 2mg IVP q4hrs prn Morphine 2mg IVP q4hrs D5 1/2 NS @ 125mL/hr Zosyn 3.375 q6hrs Lipase 654 on admission Obsructive series inconclusive NPO HTN- poorly controlled Norvasc 5mg PO QD- consider increase to 10mg/addition of second agent with continued high readings Electrolyte Imbalance 10/19: Hypokalemia, K3.2 - KCl 10meq IVPB q4H x5 PPX Protonix 40mg IVP daily SCD NPO Case Discussed with Dr. Ewing. All Medical Management as per Dr. Ewing
[2017-10-19] MEDS ORDERED: Pneumococcal 23-Valent Vaccine IM ONE (10:00)
[2017-10-19 15:57] VITALS: RESP 20
[2017-10-20] MEDS: Piperacill/Tazo 3.375gm in Dex 3.375 GM/50 ML BAG IVPB SCH ×3 (03:01→15:21)
[2017-10-20] MEDS: Dextrose 5%/0.45% NS 1,000 ML IV SCH ×3 (03:47→11:08)
[2017-10-20 06:41] LABS: BASO % 0.2 % (0.0-2.0); EOS # 0.1 K/uL (0.0-0.7); EOS % 0.8 % (0.0-4.0); HEMOGLOBIN 13.1 g/dL (12.0-18.0); LYMPH # 1.6 K/uL (1.0-4.3); LYMPH % 15.3 % (20.0-40.0); MEAN CELL VOLUME 84.7 fL (80.0-94.0); MEAN CORPUSCULAR HEMOGLOBIN 29.4 pg (27.0-31.0); MEAN CORPUSCULAR HGB CONC 34.8 g/dL (33.0-37.0); MEAN PLATELET VOLUME 8.5 fL (7.2-11.7); MONO # 0.5 K/uL (0.0-0.8); MONO % 4.7 % (0.0-10.0); NEUT # 8.4 K/uL (1.8-7.0); NRBC % 0.2 % (0.0-2.0); RBC 4.46 Mil/uL (4.40-5.90); RED CELL DISTRIBUTION WIDTH 15.3 % (11.5-14.5); WHITE BLOOD COUNT 10.7 K/uL (4.8-10.8)
[2017-10-20 06:52] LABS: ALB/GLOB RATIO 0.9 (1.0-2.1); ALT/SGPT 22 U/L (21-72); AST/SGOT 35 U/L (17-59); BLOOD UREA NITROGEN 6 mg/dL (9-20); CALCIUM 7.9 mg/dl (8.6-10.4); GFR NON-AFRICAN AMERICAN > 60
[2017-10-20] MEDS ORDERED: Dextrose 5%/0.45% NS 1,000 ML IV SCH (15:03)
[2017-10-20 15:59] VITALS: BP 137/88; PULSE 86; TEMP 98.7; O2SAT 97
[2017-10-20] MEDS ORDERED: Potassium Chloride 20 mEq ER Tab PO ONE (18:00)
== END 2017-10-20 17:17 | disposition left against medical advice (07) | DRG 440 ==
LOC: C.ER 16:28 → C.9E 18:33 → C.5S 20:39
PROVIDERS: ADMIT Internal Medicine Pulmonary Disease; ATTEND Internal Medicine Pulmonary Disease
DX: K85.20 Alcohol induced acute pancreatitis without necrosis or infection (principal); K86.0 Alcohol-induced chronic pancreatitis; E87.6 Hypokalemia; F10.20 Alcohol dependence, uncomplicated; I10 Essential (primary) hypertension; F17.210 Nicotine dependence, cigarettes, uncomplicated